=== PATIENT | female | born 1960 | race African-American/Black ===

== ENCOUNTER 2017-03-02 00:24 | Emergency (ER) | payer MEDICARE ==
[2017-03-02 01:08] LABS: Bilirubin Negative (Negative); Blood, Urine Negative (Negative); Clarity CLOUDY (Clear); Glucose, Urine (Dipstick) Negative (Negative); Leukocyte Small (Negative); Nitrite Positive (Negative); Protein, Urine (Dipstick) Trace mg/dL (Neg-Trace); Specific Gravity, Urine 1.013 (1.002-1.036); Urobilinogen 0.2 mg/dL (0.2-1.0)
[2017-03-02 01:11] LABS: Bacteria/HPF 4+ HPF (None Seen); Hyaline Casts/LPF 7-10 HYALINE CAST LPF (0-3 Hyaline); Pathc Cast-AUWi Flag 0.94 (0-2.49); Squamous Epithelial 0-3 HPF (0-3); WBC/HPF 21-50 HPF (0-3)
[2017-03-02] MEDS ORDERED: Ondansetron ODT 4 MG TAB ONE (01:50)
[2017-03-02 01:57] LABS: #Lymphocytes 0.9 thou/uL (1.20-3.40); #Monocytes 0.4 thou/uL (0.11-0.59); #Neutrophils 6.8 thou/uL (1.40-6.50); %Basophils 0.4 % (0.0-1.0); %Lymphocytes 10.8 % (21.0-51.0); %Monocytes 4.5 % (0.0-10.0); %Neutrophils 84.3 % (42.0-75.0); Hemoglobin 11.4 g/dL (12.0-16.0); Mean Corpuscular HGB CONC 30.8 g/dL (32.0-36.0); Mean Corpuscular Hemoglobin 22.8 pg (27.0-31.0); Mean Corpuscular Volume 74.2 fl (81.0-99.0); Mean Platelet Volume 11.3 fL (7.4-10.4); Platelet Count 313 thou/uL (130-400); RBC Distribution Width 21.2 % (11.5-14.5); Red Blood Cell (RBC) Count 4.98 mill/uL (4.20-5.40); White Blood Cell (WBC) Count 8.1 thou/uL (4.8-10.8)
[2017-03-02 02:07] LABS: ALT (SGPT) 8 U/L (8-55); AST (SGOT) 11 U/L (5-34); Albumin 4.2 g/dL (3.5-5.0); Alkaline Phosphatase 131 U/L (40-150); Anion Gap 16 mmol/L (10-20); BUN (Urea Nitrogen) 9 mg/dL (9.8-20.1); Bilirubin, Total Less than 0.2 mg/dL (0.2-1.2); Calc. Creatinine Clearance 0 mL/min (70-130); Carbon Dioxide 25 mmol/L (22-29); Chloride 101 mmol/L (98-107); Estimated GFR-MDRD Greater than 90; Globulin 5.1 g/dL (2.4-3.5); Glucose 143 mg/dL (70-105); Protein, Total 9.3 g/dL (6.0-8.3); Sodium 139 mmol/L (136-145)
[2017-03-02 02:09] LABS: Potassium 2.7 mmol/L (3.5-5.1)
[2017-03-02] MEDS ORDERED: Potassium Chloride 20 MEQ TAB ONE (03:16)
[2017-03-02] MEDS ORDERED: Fentanyl 100 MCG/2 ML VIAL ONE (03:53)
--- NOTE | 2017-03-02 08:29 | RAD ---
CHEST ONE VIEW: History: Dyspnea. Follow up. Comparison: 05-15-16 FINDINGS: Cardiac silhouette is magnified by projection. Pulmonary vasculature is unremarkable. Mediastinum is midline. There is no confluent airspace consolidation or evidence of pneumothorax. IMPRESSION: No active cardiopulmonary abnormalities are demonstrated. POS: [facility]
== END 2017-03-02 05:03 | disposition home or self-care (01) ==
LOC: ERS 00:24
DX: N39.0 Urinary tract infection, site not specified (principal); I10 Essential (primary) hypertension; F41.9 Anxiety disorder, unspecified; F32.9 Major depressive disorder, single episode, unspecified
CPT/HCPCS: 36415; 71045; 80053; 81003; 81015; 85025; 87077; 87086; 87186; 96372; J3010; Q0162

== ENCOUNTER 2017-03-30 09:45 | Inpatient (IN) | payer MEDICARE ==
[2017-03-30 10:31] LABS: Hemoglobin 11.5 g/dL (12.0-16.0); Mean Corpuscular HGB CONC 30.4 g/dL (32.0-36.0); Mean Corpuscular Hemoglobin 22.8 pg (27.0-31.0); Mean Corpuscular Volume 75.2 fl (81.0-99.0); Mean Platelet Volume 7.4 fL (7.4-10.4); Platelet Count 208 thou/uL (130-400); RBC Distribution Width 22.7 % (11.5-14.5); Red Blood Cell (RBC) Count 5.02 mill/uL (4.20-5.40); White Blood Cell (WBC) Count 8.6 thou/uL (4.8-10.8)
[2017-03-30 10:37] LABS: Bilirubin Negative (Negative); Blood, Urine Trace (Negative); Clarity CLOUDY (Clear); Glucose, Urine (Dipstick) Negative (Negative); Leukocyte Small (Negative); Nitrite Negative (Negative); Protein, Urine (Dipstick) Negative (Neg-Trace); Specific Gravity, Urine 1.008 (1.002-1.036); Urobilinogen 0.2 mg/dL (0.2-1.0)
[2017-03-30 10:39] LABS: Bacteria/HPF 4+ HPF (None Seen); Hyaline Casts/LPF 0-3 HYALINE CAST LPF (0-3 Hyaline); Pathc Cast-AUWi Flag 0.27 (0-2.49)
[2017-03-30 10:45] LABS: ALT (SGPT) 7 U/L (8-55); AST (SGOT) 10 U/L (5-34); Albumin 4.4 g/dL (3.5-5.0); Alkaline Phosphatase 138 U/L (40-150); Anion Gap 16 mmol/L (10-20); BUN (Urea Nitrogen) 8 mg/dL (9.8-20.1); Bilirubin, Total 0.2 mg/dL (0.2-1.2); Calc. Creatinine Clearance 0 mL/min (70-130); Calcium 10.1 mg/dL (7.8-10.44); Carbon Dioxide 27 mmol/L (22-29); Chloride 101 mmol/L (98-107); Estimated GFR-MDRD Greater than 90; Globulin 4.6 g/dL (2.4-3.5); Glucose 178 mg/dL (70-105); Sodium 141 mmol/L (136-145)
[2017-03-30 10:49] LABS: Potassium 2.6 mmol/L (3.5-5.1)
[2017-03-30 10:53] LABS: Renal Epithelial None Seen HPF (0-3); Transitional Epithelial NONE SEEN HPF (0-3)
[2017-03-30 10:59] LABS: CKMB 0.8 ng/mL (0-6.6); Troponin I Less than 0.010 ng/mL (< 0.028)
[2017-03-30 11:04] LABS: MDiff Complete? YES
[2017-03-30 11:05] LABS: Band 4 % (5-11); Hypochromia SLIGHT = 6-15 cells (100X) (0-5/hpf); Lymphocytes 7 % (21-51); Monocytes 4 % (0-10); Neutrophil 85 % (42-75); Nucleated RBC 1 % (0); PLT Morphology Comment Appears Adequate; Polychromasia SLIGHT = 2-3 cells (100X) (0-2/hpf); Target Cells MARKED = >16 cells (100X) (0-1/hpf)
[2017-03-30] MEDS ORDERED: Promethazine HCl 25 MG/ML VIAL ONE (11:10)
--- NOTE | 2017-03-30 11:52 | RAD ---
PORTABLE CHEST ONE VIEW: Date: 03-30-17 Time: 11:18 a.m. History: Altered mental status. FINDINGS: Comparison made with exam of 03-02-17. The heart size is normal. The lungs are expanded without focal areas of consolidation, pneumothorax, or pleural effusions. IMPRESSION: No radiographic evidence of acute cardiopulmonary process. POS: [facility]
[2017-03-30] MEDS ORDERED: Lorazepam 2 MG/ML VIAL ONE (13:16)
[2017-03-30 13:57] LABS: Amphetamine Not Detected (NotDetected); Barbiturates Screen Not Detected (NotDetected); Benzodiazepine Screen Not Detected (NotDetected); Cocaine Metabolite Screen Not Detected (NotDetected); Medtox Control Line Valid? VALID (VALID); Medtox Reader # READER 4; Methadone Not Detected (NotDetected); Methamphetamine Not Detected (NotDetected); Opiate Screen Detected (NotDetected); Oxycodone Screen Detected (NotDetected); Phencyclidine (PCP) Not Detected (NotDetected); THC/Cannabinoid Screen Detected (NotDetected); Tricyclic Screen Not Detected (NotDetected)
[2017-03-30 14:12] LABS: Lactic Acid 2.7 mmol/L (0.5-2.2)
[2017-03-30] MEDS ORDERED: Dextrose 50% Abboject 50 ML SYRINGE SLOW IVP PRN (14:57)
[2017-03-30] MEDS ORDERED: Dextrose 5% in Water 1,000 ML IV PRN (14:57)
[2017-03-30] MEDS ORDERED: HumaLOG 300 UNITS/3 ML VIAL SC PRN (14:57)
[2017-03-30] MEDS ORDERED: Potassium Chloride 40 MEQ in Sodium Chloride 0.9% 500 ML IVPB SCH ×2 (15:30→16:15)
[2017-03-30 15:31] LABS: Hemoglobin A1c 5.1 % (4.0-6.0)
--- NOTE | 2017-03-30 15:34 | CT ---
CT BRAIN WITHOUT CONTRAST: History: Altered mental status. FINDINGS: There is exclusion of the brain and skull in the posterior aspect close to and including the vertex. The patient was combative and refused completing the exam. No evidence of acute infarct, hemorrhage, midline shift of abnormal extraaxial fluid collections are seen. The ventricular size is normal and the basilar cisterns patent. The visualized bones are intact . The visualized paranasal sinuses and mastoid air cells are well aerated. IMPRESSION: No definite evidence of acute intracranial process in the visualized portions of the brain. POS: [facility]
[2017-03-30 15:44] LABS: Cardiac Risk 2.8 (Less than 4.5)
[2017-03-30] MEDS: Sodium Chloride 0.9% 1,000 ML IV SCH (16:04)
[2017-03-30] MEDS ORDERED: Labetalol HCl 100 MG/20 ML VIAL SLOW IVP PRN (17:29)
[2017-03-30] MEDS ORDERED: Acetaminophen 650 MG in Premix Bag 1 BAG IVPB PRN (17:29)
[2017-03-30] MEDS ORDERED: FLU VACC QS2017-18 36 mo. & older 0.5 ML SYRINGE IM ONE (18:00)
[2017-03-30 19:20] LABS: Lactic Acid 0.8 mmol/L (0.5-2.2)
[2017-03-30] MEDS ORDERED: Pantoprazole 40 MG VIAL IVP SCH (21:00)
--- NOTE | 2017-03-30 21:05 | HP-2 ---
DATE OF ADMISSION: 03/30/2017 DATE OF SERVICE: 03/30/2017 CODE STATUS: FULL. PRIMARY CARE PHYSICIAN: Dr. Otero. ATTENDING: Dr. Leslie. RESIDENT: Dr. Joan Flores. HISTORIAN: EMS and nurse. CHIEF COMPLAINT: Altered mental status. HISTORY OF PRESENT ILLNESS: This is a 56-year-old female with a past medical history of vulvar cancer, who presents in currently with urostomy bag presents via EMS who responded to her Life Alert call. She presented with altered mental status, she was found down by EMS in her house covered in feces not responsive/obtunded per EMS. When we evaluated her in the ER, she was not alert and oriented or responsive to verbal stimuli. She did respond to sternal rub. She was not conversive, but she was speaking incoherently, chanting random words like pillow and pain. She also appeared agitated. She cannot offer any history. In the ER, she was given Ativan 1 mg IV push. She was given 1 liter of normal saline as well as Levaquin 750 mg IV and Phenergan 25 mg IV, 2 liters of sodium chloride. PAST MEDICAL HISTORY: 1. History of vulvar cancer diagnosed in 2003, status post chemo and radiation. 2. Hypertension. 3. Type 2 diabetes. 4. Recurrent urinary tract infections. 5. Chronic anemia. 6. First-degree AV block. 7. Depression. 8. Hiatal hernia. PAST SURGICAL HISTORY: 1. Right hip disarticulation. 2. Bilateral tubal ligation, bilateral hip replacement resulting in bilateral infections and subsequently removal at the right hip as well as subsequently causing removal of the left artificial hip joint. ALLERGIES: 1. IODINE. 2. LIDOCAINE. MEDICATIONS: 1. OxyContin 30 mg b.i.d. 2. Morphine IR 15 mg q.8 hours (both of these were prescribed in 03/[address] Charles). The next set of medications were taken from [facility] from 05/2016. 1. Amlodipine 5 mg p.o. 2. Baclofen 10 mg q.6 hours p.r.n. 3. Cymbalta 120 mg daily. 4. BuSpar 15 mg q.4 hour. 5. Zyprexa 10 mg at bedtime. 6. Diazepam 2 mg p.o. b.i.d. p.r.n. 7. Methadone 10 mg q.i.d. FAMILY HISTORY: Cancer in her father, also family history of CAD, diabetes, hypertension. SOCIAL HISTORY: Former tobacco history, 5-10 cigarettes per day, unknown duration of time. Denies alcohol use, former history of marijuana use. REVIEW OF SYSTEMS: Review of systems was obtained from EMS. General: Denies fevers and chills. Eyes: Denies vision changes. ENT: Denies nasal congestion or rhinorrhea. Respiratory: Denies cough, congestion, shortness of breath. Cardiovascular: Denies chest pain, palpitations, edema. GI: Denies nausea, vomiting, diarrhea, constipation. Genitourinary: Denies incontinence, dysuria. Rashes and lesions. Pain, tenderness. Neurologic: Weakness, numbness. Psychiatric: Anxiety and depression. PHYSICAL EXAMINATION: VITAL SIGNS: Blood pressure 171/85, pulse 85, respiratory rate 19, T-max 98.1, pulse ox 100% on room air. GENERAL: Alert and oriented, not appropriately interactive. CARDIOVASCULAR: Regular rate and rhythm. No murmurs, rubs, or gallops. Pedal pulses 2+ on the left leg. RESPIRATORY: Normal effort, no retractions. Clear to auscultation bilaterally. ABDOMEN: Soft. Urostomy in the right lower quadrant, nontender to palpation. EXTREMITIES: Right lower extremity disarticulation. SKIN: Grossly obvious perineal mass. NEUROLOGICAL: GCS of 10. LABORATORY DATA: White blood cell count 8.6, hemoglobin and hematocrit 11.5 and 37.8, platelets 208. CMP: Sodium 141, potassium 2.6, chloride 101, bicarb 27, BUN 8, creatinine 0.59 , glucose 178. Calcium 10.1, protein 9.0, albumin 4.4. Total bilirubin 0.2, AST 10, ALT 7, alkaline phosphatase 38, lactic acid 2.1, which increased to 2.7. UA positive for blood and leukocyte esterase and 4+ bacteria, 11-20 white blood cells, 4-6 squamous epithelial cells, negative for glucose, ketones, and nitrites, total protein. UDS was positive for marijuana, opiates, and oxycodone. Chest x-ray no cardiopulmonary process. EKG not completed. ASSESSMENT AND PLAN: This is a 56-year-old female with a past medical history of vulvar cancer, who presents via EMS for altered mental status, admitted for encephalopathy. 1. Encephalopathy suspected to be due to toxic ingestion of her pain medication. She has a prior admission to the hospital approximately a year ago with a similar presentation. She currently is a patient of Dr. Otero, but receives her pain medication most recently picked up on 03/19/2017 of OxyContin and morphine IR. She also has a small urinary tract infection, does not appear to be septic at this time. We ordered a head CT to rule out a brain bleed, which was difficult to assess, as the patient was combative and refused completing the exam. No evidence of acute infarct or hemorrhage. We will also order an ABG to evaluate her acid-base status, although she has a normal respiratory rate, no increased work of breathing, and satting well on room air with a normal bicarbonate. 2. Hypokalemia. She came with potassium of 2.6. We will replace with 40 KCl IVP added to her fluids and normal saline at 120 mL an hour. 3. She had a lactic acidosis. We started on normal saline 120 mL an hour and we will recheck done in 4 hours. 4. Diabetes. We will check hemoglobin A1c, started on sliding scale insulin, Accu-Cheks a.c. and at bedtime. 5. Hypertension. We will provide p.r.n. labetalol now and will consider restarting home medications from a list obtained from almost a year ago and she was admitted here of amlodipine 5 mg p.o. 6. Depression. We will attempt to assess for SI, HI, and AVH once the patient is conversive and less obtunded. 7. Social concerns. Patient was found obtunded at home on the floor. She is nonambulatory and was covered in feces. An Adult Protective Services complaint was filed in the ER and case management will be consulted to assist in following up regarding caring for this patient. 8. History of vulvar cancer. She was diagnosed in 2003 appears to have had chemo and radiation. She does have an appears to overt perineal mass that is fibrosis from her chemo/radiation treatment. When she is less obtunded, we will attempt to start her on adequate pain control. DISPOSITION AND LENGTH OF HOSPITAL STAY: 2-3 days. Symptomatic medication will be provided. History and physical exam as well as management discussed with Dr. Leslie. [facility]
--- NOTE | 2017-03-31 02:00 | HP ---
DATE OF ADMISSION: 03/30/2017 CHIEF COMPLAINT: Altered mental status. HISTORY OF PRESENT ILLNESS: This is a 56-year-old female with past history of vulvar cancer, hypertension, right hip disarticulation, and chronic pain on multiple opiates, who presents to the ED via EMS after she was found down in urine and feces and subsequently transported. She was subsequently admitted to our service. Currently, she is intermittently GCS of 15 and then she will be quite active and respond to questions and then she will stop respond to people and seemingly go back to sleep. During her awake period, she moves all extremities and is appropriately interactive. She says she hurts all over, but when pressed cannot complete review of systems. Past medical history and past surgical history are limited as well as medications are limited. FAMILY HISTORY AND SOCIAL HISTORY: Because of her current mental status what is reconstructed is primarily from chart checking. PHYSICAL EXAMINATION: VITAL SIGNS: BP 171/87, temperature 97.5, pulse 94, respirations 18, 100% on room air. GENERAL: No acute distress. HEENT: Normocephalic, atraumatic. No signs of trauma. pupils equal, round, reactive to light. Eyes, anicteric without injection. Pinna normal. Nares patent. Moist mucous membranes. Poor dentition. CARDIOVASCULAR: Regular rate and rhythm without murmurs, gallops or rubs. LUNGS: Clear to auscultation bilaterally without wheeze, rales or rhonchi. GASTROINTESTINAL: Bowel sounds positive, nontender to palpation. No palpable organomegaly. She has an urostomy in the right lower quadrant. It is well appearing. GENITOURINARY: She has a pretty impressive condyloma that appears to have portions that are denuded and open. A detailed exam was not performed because the patient could not cooperate or consent. MUSCULOSKELETAL: She has right hip disarticulation. She has a left hip removal , but still has her femur and lower extremity bones in place and able to move it. Peripheral pulses in the leg, 2+. NEUROLOGIC: She moves all extremities well without difficulties. Sensation is intact to light touch throughout. Cranial nerves II-XII are difficult to assess , but appear to be symmetric and intact. PSYCHIATRIC: She is alert and oriented x3 when she wakes up and then when she decides to go to sleep, she refuses to respond. LABORATORY DATA: Include white count 8.6, hemoglobin 11.5, MCV is 75.2, platelets 208. Sodium 141, potassium 2.6, chloride 101, bicarb 27, gap 16, BUN 8, creatinine 0.59, glucose 178, calcium 10.1. ALT 7, AST 10, total bilirubin 0.2. Urine, significant for trace blood, trace or small leukocyte esterase, 10- 20 wbc's, and 4-6 squamous epithelial cells, 4+ bacteria. UDS has positive opiates, hydrocodone, cannabinoids. Brain CT was negative for acute intracranial process. ASSESSMENT AND PLAN: 1. This is a 56-year-old female who came in with acute encephalopathy. Differential is wide and includes pulmonary embolism, acute coronary syndrome, aortic dissection, metastatic spread of her cancer, new onset seizure, hypoglycemia and narcotic intoxication. We will hold all of her pain medications for the next several hours until she becomes more appropriate in her responses. Will consider keppra load depending on clinical course. 2. Chronic pain. We will hold her narcotics at this point. Hold Ativan. 3. Vulvar cancer. We will discuss and request records from her oncologist. 4. Positive leukocyte esterase in the urine. She currently does not have any abdominal pain, nontender to palpation, no symptoms, so we will hold off on treatment. This could be concerning for seizure. We will consider consultation with Neurology in the morning. 5. Deep venous thrombosis prophylaxis with Lovenox. 6. Gastrointestinal prophylaxis with diet when she wakes up. [facility]
[2017-03-31] MEDS: Sodium Chloride 0.9% 1,000 ML IV SCH ×4 (04:51→22:58)
[2017-03-31 05:32] LABS: #Basophils 0.1 thou/uL (0.0-0.2); #Lymphocytes 1.6 thou/uL (1.20-3.40); #Monocytes 0.7 thou/uL (0.11-0.59); #Neutrophils 4.7 thou/uL (1.40-6.50); %Eosinophils 0.1 % (0.0-10.0); %Lymphocytes 22.6 % (21.0-51.0); %Monocytes 10.2 % (0.0-10.0); %Neutrophils 66.1 % (42.0-75.0); Hemoglobin 11.4 g/dL (12.0-16.0); Mean Corpuscular HGB CONC 31.1 g/dL (32.0-36.0); Mean Corpuscular Hemoglobin 23.2 pg (27.0-31.0); Mean Corpuscular Volume 74.5 fl (81.0-99.0); Mean Platelet Volume 7.4 fL (7.4-10.4); Platelet Count 222 thou/uL (130-400); RBC Distribution Width 22.4 % (11.5-14.5); Red Blood Cell (RBC) Count 4.91 mill/uL (4.20-5.40); White Blood Cell (WBC) Count 7.1 thou/uL (4.8-10.8)
[2017-03-31 05:50] LABS: Anion Gap 13 mmol/L (10-20); BUN (Urea Nitrogen) 6 mg/dL (9.8-20.1); Calc. Creatinine Clearance 131 mL/min (70-130); Calcium 9.8 mg/dL (7.8-10.44); Carbon Dioxide 25 mmol/L (22-29); Chloride 101 mmol/L (98-107); Estimated GFR-MDRD Greater than 90; Glucose 117 mg/dL (70-105); Sodium 137 mmol/L (136-145)
[2017-03-31 06:13] LABS: Potassium 2.4 mmol/L (3.5-5.1)
[2017-03-31] MEDS ORDERED: Potassium Chloride 40 MEQ in Sodium Chloride 0.9% 500 ML IVPB SCH ×2 (07:00→14:00)
[2017-03-31] MEDS ORDERED: Pantoprazole 40 MG VIAL IVP SCH (09:00)
[2017-03-31 09:05] VITALS: BMI 25.7
[2017-03-31] MEDS: Enoxaparin Sodium 40 MG/0.4 ML SYRINGE SC SCH (09:16)
[2017-03-31] MEDS ORDERED: Morphine 5 MG/ML SYRINGE SLOW IVP PRN ×2 (11:17→11:18)
[2017-03-31 11:29] LABS: Magnesium 1.6 mg/dL (1.6-2.6); Phosphorus 2.2 mg/dL (2.3-4.7)
[2017-03-31] MEDS: Ondansetron ODT 4 MG TAB SL PRN ×2 (11:29→16:31)
--- NOTE | 2017-03-31 12:10 | PDOC.FM ---
- Objective Vital Signs & Weight: Vital Signs (12 hours) Temp Pulse Resp BP Pulse Ox 03/31/17 08:35 97.7 F 95 18 147/89 H 100 03/31/17 08:00 97.8 F 84 18 03/31/17 04:00 97.8 F 84 18 161/86 H 96 Weight Admit Weight 70.3 kg Weight 70.3 kg I&O: 03/30/17 03/31/17 04/01/17 06:59 06:59 06:59 Intake Total 1823 Output Total 3400 Balance -1577 Result Diagrams: 03/31/17 04:51 03/31/17 04:51 <Joan Flores - Last Filed: 03/31/17 12:21> - Objective Vital Signs & Weight: Vital Signs (12 hours) Temp Pulse Resp BP Pulse Ox 03/31/17 08:35 97.7 F 95 18 147/89 H 100 03/31/17 08:00 97.8 F 84 18 03/31/17 04:00 97.8 F 84 18 161/86 H 96 Weight Admit Weight 70.3 kg Weight 70.3 kg I&O: 03/30/17 03/31/17 04/01/17 06:59 06:59 06:59 Intake Total 1823 Output Total 3400 Balance -1577 Result Diagrams: 03/31/17 04:51 03/31/17 12:18 <hSane Tellez - Last Filed: 03/31/17 13:05> Dx/Plan (1) Acute encephalopathy Code(s): G93.40 - ENCEPHALOPATHY, UNSPECIFIED Status: Acute (2) Hypokalemia Code(s): E87.6 - HYPOKALEMIA Status: Acute (3) Marijuana abuse Code(s): F12.10 - CANNABIS ABUSE, UNCOMPLICATED Status: Acute (4) Anxiety and depression Code(s): F41.9 - ANXIETY DISORDER, UNSPECIFIED; F32.9 - MAJOR DEPRESSIVE DISORDER, SINGLE EPISODE, UNSPECIFIED Status: Chronic (5) Opioid dependence Code(s): F11.20 - OPIOID DEPENDENCE, UNCOMPLICATED Status: Chronic (6) Benign essential hypertension Code(s): I10 - ESSENTIAL (PRIMARY) HYPERTENSION Status: Chronic - Plan Plan: 56 yo f with pmhx of vulvar cancer s/p chemo and radiation with 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 1.)Suspected toxic encephalopathy-pt was a&ox4 this AM, improved from yesterday when she had a GCS of 10. She states that she ate a sandwich yesterday and acutely got nauseous and vomited and multiple bouts of diarrhea. She felt weak and called EMS via her life alert. She was very sedated yesterday. Suspect overuse of oxycontin, morphine. She also was positive on her UDS for marijuana. -Plan to provide morphine 4mg q4 hr for pain, with 2mg q2hr for breakthrough pain, since she is alert and oriented this am. -Etiology does not appear to be infectious, traumatic, tumor, stroke, endocrine , or stroke related. Cannot rule out a seizure at this point. -Pt currently gets pain meds from Dr. Charles. -She also per Cm gets HH 3x/week. Would recommend daily for at least 3 months if pt does not desire to go to a sniff. She has a brother that helps with transport to and from [facility]. 2.)Viral gastroenteritis-improved. n/v/d resolved. zofran prn. 3.)HTN-restarted amlodipine. Will monitor. 4.)Hypokalemia-will restart 20 Kdur PO daily, and replace as needed. 5.)Anxiety and Depression-pt has been off medication for almost a year. Does not appear to be having active SI/HI/AVH. <Joan Flores - Last Filed: 03/31/17 12:21> Attending Addendum - Attending Addendum I personally evaluated the patient and discussed the management with Dr. Christine Romano. I agree with the History, Examination, Assessment and Plan documented above with any addition or exceptions noted below. Patient denies complaints this morning. She is not very talkative and does not seem interested in having a discussion with us. However, she does answer questions appropriately. I am told that she was improved with her mentation earlier this morning. She may be in pain since she has not had any of her home meds. Will institute some pain control and reassess. She has no evidence for her encephalopathy other than a toxic cause, of which she has had before due to medication effect. Her potassium is critically low and will need close monitoring and repletion through the day. Anticipate 1-2 more days hospitalization. <Shane Tellez - Last Filed: 03/31/17 13:05>
[2017-03-31 12:58] LABS: Anion Gap 14 mmol/L (10-20); BUN (Urea Nitrogen) 8 mg/dL (9.8-20.1); Calc. Creatinine Clearance 136 mL/min (70-130); Calcium 9.6 mg/dL (7.8-10.44); Carbon Dioxide 25 mmol/L (22-29); Chloride 104 mmol/L (98-107); Estimated GFR-MDRD Greater than 90; Glucose 111 mg/dL (70-105); Sodium 140 mmol/L (136-145)
[2017-03-31 13:00] LABS: Potassium 2.5 mmol/L (3.5-5.1)
[2017-03-31 13:03] LABS: CKMB 0.6 ng/mL (0-6.6); Troponin I Less than 0.010 ng/mL (< 0.028)
[2017-03-31] MEDS: Morphine 5 MG/ML SYRINGE SLOW IVP PRN ×3 (15:17→22:53)
[2017-03-31 16:25] LABS: CKMB 0.5 ng/mL (0-6.6); Troponin I Less than 0.010 ng/mL (< 0.028)
[2017-03-31] MEDS ORDERED: Acetaminophen 325 MG TAB PO PRN (18:21)
[2017-03-31 18:50] LABS: Potassium 2.8 mmol/L (3.5-5.1)
[2017-03-31 19:38] LABS: CKMB 0.5 ng/mL (0-6.6); Troponin I Less than 0.010 ng/mL (< 0.028)
[2017-03-31] MEDS ORDERED: OLANZapine 5 MG TAB PO SCH (21:00)
[2017-03-31] MEDS ORDERED: hydrOXYzine 25 MG TAB PO SCH (22:45)
[2017-03-31] MEDS: Simethicone Chewable 80 MG TAB PO SCH (22:53)
[2017-03-31 23:27] LABS: Anion Gap 10 mmol/L (10-20); BUN (Urea Nitrogen) 13 mg/dL (9.8-20.1); Calc. Creatinine Clearance 126 mL/min (70-130); Carbon Dioxide 24 mmol/L (22-29); Chloride 109 mmol/L (98-107); Estimated GFR-MDRD Greater than 90; Glucose 111 mg/dL (70-105); Potassium 3.2 mmol/L (3.5-5.1); Sodium 140 mmol/L (136-145)
[2017-04-01] MEDS ORDERED: Calcium Carbonate 500 MG ChewTAB PO PRN (02:13)
[2017-04-01 05:23] LABS: Anion Gap 13 mmol/L (10-20); BUN (Urea Nitrogen) 13 mg/dL (9.8-20.1); Calc. Creatinine Clearance 139 mL/min (70-130); Calcium 9.2 mg/dL (7.8-10.44); Carbon Dioxide 21 mmol/L (22-29); Chloride 108 mmol/L (98-107); Estimated GFR-MDRD Greater than 90; Glucose 81 mg/dL (70-105); Potassium 3.2 mmol/L (3.5-5.1); Sodium 139 mmol/L (136-145)
[2017-04-01 06:02] LABS: Anisocytosis SLIGHT = 6-15 cells (100X) (0-5/hpf); Eosinophils 1 % (0-10); Hemoglobin 10.1 g/dL (12.0-16.0); Lymphocytes 54 % (21-51); MDiff Complete? YES; Mean Corpuscular HGB CONC 31.1 g/dL (32.0-36.0); Mean Corpuscular Hemoglobin 23.5 pg (27.0-31.0); Mean Corpuscular Volume 75.6 fl (81.0-99.0); Mean Platelet Volume 7.7 fL (7.4-10.4); Monocytes 7 % (0-10); Neutrophil 37 % (42-75); Platelet Count 177 thou/uL (130-400); RBC Distribution Width 21.8 % (11.5-14.5); Red Blood Cell (RBC) Count 4.28 mill/uL (4.20-5.40); Target Cells MODERATE= 6-15 cells (100X) (0-1/hpf); White Blood Cell (WBC) Count 5.2 thou/uL (4.8-10.8)
--- NOTE | 2017-04-01 06:09 | PDOC.FM ---
- Subjective Subjective: No acute events overnight. No complaints this am. A&Ox4. - Objective Vital Signs & Weight: Vital Signs (12 hours) Temp Pulse Resp BP Pulse Ox 03/31/17 20:00 98.3 F 83 20 108/72 97 Weight Admit Weight 70.3 kg Weight 70.3 kg I&O: 03/30/17 03/31/17 04/01/17 06:59 06:59 06:59 Intake Total 1823 Output Total 3400 800 Balance -1577 -800 Result Diagrams: 04/01/17 04:18 04/01/17 04:18 <Joan Flores - Last Filed: 04/01/17 09:13> - Objective Vital Signs & Weight: Vital Signs (12 hours) Temp Pulse Resp BP BP Pulse Ox 04/01/17 09:58 85 126/78 04/01/17 08:00 98.1 F 85 14 126/78 100 Weight Admit Weight 70.3 kg Weight 70.3 kg I&O: 03/31/17 04/01/17 04/02/17 06:59 06:59 06:59 Intake Total 1823 1920 Output Total 3400 800 1000 Balance -1577 1120 -1000 Result Diagrams: 04/01/17 04:18 04/01/17 04:18 <Shane Tellez - Last Filed: 04/01/17 11:49> Phys Exam - Physical Examination Constitutional: NAD HEENT: PERRLA Respiratory: no wheezing, clear to auscultation bilateral Cardiovascular: RRR, no significant murmur Gastrointestinal: soft, non-tender Musculoskeletal: no edema Psychiatric: A&O x 3 Skin: no rash <Joan Flores - Last Filed: 04/01/17 09:13> Dx/Plan (1) Acute encephalopathy Code(s): G93.40 - ENCEPHALOPATHY, UNSPECIFIED Status: Acute (2) Hypokalemia Code(s): E87.6 - HYPOKALEMIA Status: Acute (3) Marijuana abuse Code(s): F12.10 - CANNABIS ABUSE, UNCOMPLICATED Status: Acute (4) Anxiety and depression Code(s): F41.9 - ANXIETY DISORDER, UNSPECIFIED; F32.9 - MAJOR DEPRESSIVE DISORDER, SINGLE EPISODE, UNSPECIFIED Status: Chronic (5) Opioid dependence Code(s): F11.20 - OPIOID DEPENDENCE, UNCOMPLICATED Status: Chronic (6) Benign essential hypertension Code(s): I10 - ESSENTIAL (PRIMARY) HYPERTENSION Status: Chronic - Plan Plan: 56 yo f with pmhx of vulvar cancer s/p chemo and radiation with 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 1.)Suspected toxic encephalopathy-pt was a&ox4 this AM. -Etiology does not appear to be infectious, traumatic, tumor, stroke, endocrine , or stroke related. Cannot rule out a seizure at this point. -Pt currently gets pain meds from Dr. Charles. -She also per Cm gets HH 3x/week. Would recommend daily for at least 3 months if pt does not desire to go to a sniff. She has a brother that helps with transport to and from [facility]. -We will transition Ms. Olivera to PO pain medication today. She's using about 18 OME's. Her home regimen for MS odell is 15mg q6h, which would be appropriate based on OME's. I will start with q8h however and provide morphine IV for breakthrough and reassess in 24 hours. 2.)Viral gastroenteritis-improved. n/v/d resolved. zofran prn. 3.)HTN-restarted amlodipine. Will monitor. 4.)Hypokalemia-Increased to 40KCL PO daily d/t persistently low potassium. 5.)Anxiety and Depression vs other mood d/o-pt has been off medication for almost a year. Does not appear to be having active SI/HI/AVH. Will assess mood today to see if she needs to be started back on prior medication of olanzapine. Dispo: likely discharge today <Joan Flores - Last Filed: 04/01/17 09:13> Attending Addendum - Attending Addendum I personally evaluated the patient and discussed the management with Dr. Christine Romano. I agree with the History, Examination, Assessment and Plan documented above with any addition or exceptions noted below. Patient back at baseline from mental status perspective. Her pain is not adequately controlled and will escalate her pain meds. Will discuss her care with her outpatient Oncologist today. Her potassium is better, will continue supplementation. It is likely that she has hypokalemia due to poor intake. She admits this morning to only eating one small meal a day and nothing is appetizing. Will discuss with her oncologist starting Megace versus Remeron for coexisting depression. General Doc consult. <Shane Tellez - Last Filed: 04/01/17 11:49>
[2017-04-01] MEDS: Sodium Chloride 0.9% 1,000 ML IV SCH ×3 (06:30→21:48)
[2017-04-01] MEDS ORDERED: Morphine ER 15 MG TAB PO SCH ×2 (06:30→14:00)
[2017-04-01] MEDS ORDERED: Potassium Chloride 20 MEQ TAB PO SCH ×2 (08:00→09:13)
[2017-04-01] MEDS ORDERED: Potassium Chloride 20 MEQ TAB PO ONE (09:11)
[2017-04-01] MEDS: Amlodipine 10 MG TAB PO SCH (09:58)
[2017-04-01] MEDS: Enoxaparin Sodium 40 MG/0.4 ML SYRINGE SC SCH (09:59)
[2017-04-01] MEDS: Magnesium Oxide 400 MG TAB PO SCH (09:59)
[2017-04-01] MEDS: Simethicone Chewable 80 MG TAB PO SCH ×4 (09:59→22:45)
[2017-04-01] MEDS ORDERED: Cefdinir 300 MG CAP PO SCH (13:15)
[2017-04-01] MEDS ORDERED: Nitrofurantoin Monohyd/M-Cryst 100 MG CAP PO SCH (13:15)
[2017-04-01] MEDS ORDERED: Gabapentin 300 MG CAP PO SCH (15:30)
[2017-04-01] MEDS ORDERED: busPIRone HCl 10 MG TAB PO SCH (15:45)
[2017-04-01] MEDS ORDERED: OLANZapine 5 MG TAB PO SCH (18:00)
[2017-04-01] MEDS: Cefdinir 300 MG CAP PO SCH (19:39)
[2017-04-01] MEDS: Morphine ER 15 MG TAB PO SCH (19:39)
[2017-04-01] MEDS: Nitrofurantoin Monohyd/M-Cryst 100 MG CAP PO SCH (19:39)
[2017-04-01] MEDS: Gabapentin 300 MG CAP PO SCH (19:39)
[2017-04-01] MEDS: Lorazepam 1 MG TAB PO PRN (21:46)
[2017-04-02 05:53] LABS: Anisocytosis SLIGHT = 6-15 cells (100X) (0-5/hpf); Eosinophils 3 % (0-10); Hemoglobin 9.5 g/dL (12.0-16.0); Hypochromia SLIGHT = 6-15 cells (100X) (0-5/hpf); Lymphocytes 69 % (21-51); MDiff Complete? YES; Mean Corpuscular Hemoglobin 22.9 pg (27.0-31.0); Mean Corpuscular Volume 76.2 fl (81.0-99.0); Mean Platelet Volume 7.2 fL (7.4-10.4); Microcytosis SLIGHT = 6-15 cells (100X) (0-5/hpf); Monocytes 7 % (0-10); Neutrophil 21 % (42-75); PLT Morphology Comment Appears Adequate; Platelet Count 172 thou/uL (130-400); RBC Distribution Width 21.4 % (11.5-14.5); Red Blood Cell (RBC) Count 4.16 mill/uL (4.20-5.40); White Blood Cell (WBC) Count 4.6 thou/uL (4.8-10.8)
[2017-04-02 06:10] LABS: Anion Gap 10 mmol/L (10-20); BUN (Urea Nitrogen) 9 mg/dL (9.8-20.1); Calc. Creatinine Clearance 148 mL/min (70-130); Calcium 8.4 mg/dL (7.8-10.44); Carbon Dioxide 24 mmol/L (22-29); Chloride 110 mmol/L (98-107); Estimated GFR-MDRD Greater than 90; Glucose 77 mg/dL (70-105); Sodium 141 mmol/L (136-145)
--- NOTE | 2017-04-02 06:14 | PDOC.FM ---
- Subjective Subjective: No acute events overnight. VSS. Not complaining of pain this am. A&Ox4. - Objective MAR Reviewed: Yes Vital Signs & Weight: Vital Signs (12 hours) Temp Pulse Resp BP Pulse Ox 04/01/17 20:00 98 F 88 18 129/84 99 Weight Admit Weight 70.3 kg Weight 70.3 kg I&O: 03/31/17 04/01/17 04/02/17 06:59 06:59 06:59 Intake Total 1823 1920 1740 Output Total 3400 800 2500 Balance -1577 1120 -760 Result Diagrams: 04/02/17 04:38 04/02/17 04:38 <Joan Flores - Last Filed: 04/02/17 11:19> - Objective Vital Signs & Weight: Vital Signs (12 hours) Temp Pulse Resp BP Pulse Ox 04/02/17 20:00 98.9 F 92 16 163/99 H 100 04/02/17 17:06 98.5 F 93 16 162/92 H 99 04/02/17 11:19 98.3 F 82 20 143/90 H 98 Weight Admit Weight 70.3 kg Weight 70.3 kg I&O: 04/01/17 04/02/17 04/03/17 06:59 06:59 06:59 Intake Total 1920 1740 Output Total 800 2500 2450 Balance 1120 -760 -2450 Result Diagrams: 04/02/17 04:38 04/02/17 20:40 <Alysha Freeman - Last Filed: 04/02/17 22:51> Phys Exam - Physical Examination Constitutional: NAD HEENT: PERRLA, moist MMs Neck: no JVD Respiratory: no wheezing, no rales, clear to auscultation bilateral Cardiovascular: RRR, no significant murmur Gastrointestinal: soft, non-tender, no distention, positive bowel sounds Musculoskeletal: no edema Neurological: non-focal Psychiatric: A&O x 3 Deviation from normal: depressed mood with congruent affect, tearful Skin: no rash <Joan Flores - Last Filed: 04/02/17 11:19> Dx/Plan (1) Acute encephalopathy Code(s): G93.40 - ENCEPHALOPATHY, UNSPECIFIED Status: Acute (2) Hypokalemia Code(s): E87.6 - HYPOKALEMIA Status: Acute (3) Marijuana abuse Code(s): F12.10 - CANNABIS ABUSE, UNCOMPLICATED Status: Acute (4) Anxiety and depression Code(s): F41.9 - ANXIETY DISORDER, UNSPECIFIED; F32.9 - MAJOR DEPRESSIVE DISORDER, SINGLE EPISODE, UNSPECIFIED Status: Chronic (5) Opioid dependence Code(s): F11.20 - OPIOID DEPENDENCE, UNCOMPLICATED Status: Chronic (6) Benign essential hypertension Code(s): I10 - ESSENTIAL (PRIMARY) HYPERTENSION Status: Chronic - Plan Plan: 56 yo f with pmhx of vulvar cancer s/p chemo and radiation with 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 1.)Suspected toxic encephalopathy-pt was a&ox4 this AM. -Etiology does not appear to be infectious, traumatic, tumor, stroke, endocrine , or stroke related. Cannot rule out a seizure at this point. -Pt currently gets pain meds from Dr. Charles. -She also per Cm gets HH 3x/week. Would recommend daily for at least 3 months if pt does not desire to go to a sniff. She has a brother that helps with transport to and from [facility] -We will continue MS Contin today with morphine IV for breakthrough pain. Her total OME's=36, we can change her MS Contin to q8h and continue 2mg IV morphine q2h for breakthrough pain. She is requesting her muscle relaxer for back and leg pain. 2.)Viral gastroenteritis-improved. n/v/d resolved. zofran prn. 3.)HTN-restarted amlodipine. Will monitor. 4.)Hypokalemia-Increased to 40KCL PO daily d/t persistently low potassium. Dietitician consulted who recommended a CC diet and glucerna shakes BID. 5.)Anxiety and Depression vs other mood d/o-pt has been off medication for almost a year. Does not appear to be having active SI/HI/AVH. Will assess mood today to see if she needs to be started back on prior medication of olanzapine. Pt was depressed and tearful yesterday. We will restart he zyprexa and lorazepam prn which she was on in the past. Unclear how long she has been off those medications. Dispo: likely discharge today; pt would still benefit from going to a sniff. We will discuss this with her today again. However, she hasn't been interested in going up to this point. <Joan Flores - Last Filed: 04/02/17 11:19> Attending Addendum - Attending Addendum I personally evaluated the patient and discussed the management with Dr. Romano. I agree with the History, Examination, Assessment and Plan documented above with any addition or exceptions noted below- Patient now complaining of increased pain. Otherwise tolerating diet . Afebrile VSS. A/P: Toxic encephalopathy- resolved. uncertain etiology. 2) Chronic pain secondary to vulvar cancer and treatment- restarted on long acting opioid. Continue to titrate. 3) DM - stable; continue current meds. <Alysha Freeman - Last Filed: 04/02/17 22:51>
[2017-04-02 06:15] LABS: Potassium 2.9 mmol/L (3.5-5.1)
[2017-04-02] MEDS ORDERED: Potassium Chloride 20 MEQ TAB PO SCH ×3 (06:30→16:45)
[2017-04-02 06:58] LABS: Magnesium 1.5 mg/dL (1.6-2.6); Phosphorus 3.3 mg/dL (2.3-4.7)
[2017-04-02] MEDS ORDERED: OLANZapine 5 MG TAB PO SCH (09:00)
[2017-04-02] MEDS: Enoxaparin Sodium 40 MG/0.4 ML SYRINGE SC SCH (09:05)
[2017-04-02] MEDS: Sodium Chloride 0.9% 1,000 ML IV SCH ×2 (09:05→17:14)
[2017-04-02] MEDS: Magnesium Oxide 400 MG TAB PO SCH (09:06)
[2017-04-02] MEDS: OLANZapine 5 MG TAB PO SCH (09:06)
[2017-04-02] MEDS: Folic Acid 1 MG TAB PO SCH (09:06)
[2017-04-02] MEDS: Gabapentin 300 MG CAP PO SCH ×4 (09:06→23:23)
[2017-04-02] MEDS: Nitrofurantoin Monohyd/M-Cryst 100 MG CAP PO SCH ×2 (09:06→22:37)
[2017-04-02] MEDS: Morphine ER 15 MG TAB PO SCH ×3 (09:07→23:23)
[2017-04-02] MEDS: Cefdinir 300 MG CAP PO SCH ×3 (09:07→23:22)
[2017-04-02] MEDS: Simethicone Chewable 80 MG TAB PO SCH ×4 (09:08→22:37)
[2017-04-02] MEDS: Potassium Chloride 20 MEQ TAB PO SCH (09:08)
[2017-04-02] MEDS: Amlodipine 10 MG TAB PO SCH (09:08)
[2017-04-02] MEDS: Baclofen 10 MG TAB PO SCH ×3 (12:24→23:23)
[2017-04-02] MEDS: Ondansetron ODT 4 MG TAB SL PRN ×3 (12:26→17:13)
[2017-04-02 15:45] LABS: Magnesium 1.8 mg/dL (1.6-2.6)
[2017-04-02 15:54] LABS: Potassium 2.9 mmol/L (3.5-5.1)
[2017-04-02] MEDS ORDERED: Potassium Chloride 40 MEQ in Sodium Chloride 0.9% 500 ML IVPB SCH (17:15)
[2017-04-02 21:23] LABS: Potassium 3.4 mmol/L (3.5-5.1)
[2017-04-02] MEDS ORDERED: Ondansetron HCl/PF 4 MG/2 ML Vial IVP PRN (22:28)
[2017-04-02] MEDS: Nystatin Powder 15 GM BOT TOP SCH (22:37)
[2017-04-02] MEDS: Lorazepam 1 MG TAB PO PRN (23:29)
[2017-04-03] MEDS: Sodium Chloride 0.9% 1,000 ML IV SCH ×2 (02:53→10:05)
[2017-04-03] MEDS ORDERED: Potassium Chloride 40 MEQ in Sodium Chloride 0.9% 500 ML IVPB SCH (04:00)
[2017-04-03 05:50] LABS: #Basophils 0.1 thou/uL (0.0-0.2); #Eosinphils 0.1 thou/uL (0.0-0.7); #Lymphocytes 2.5 thou/uL (1.20-3.40); #Monocytes 0.6 thou/uL (0.11-0.59); #Neutrophils 2.7 thou/uL (1.40-6.50); %Basophils 1.8 % (0.0-1.0); %Lymphocytes 41.7 % (21.0-51.0); %Monocytes 9.6 % (0.0-10.0); %Neutrophils 45.9 % (42.0-75.0); Hemoglobin 11.1 g/dL (12.0-16.0); Mean Corpuscular HGB CONC 30.8 g/dL (32.0-36.0); Mean Corpuscular Hemoglobin 23.3 pg (27.0-31.0); Mean Corpuscular Volume 75.6 fl (81.0-99.0); Platelet Count 206 thou/uL (130-400); RBC Distribution Width 21.4 % (11.5-14.5); Red Blood Cell (RBC) Count 4.77 mill/uL (4.20-5.40)
[2017-04-03 06:03] LABS: Anion Gap 10 mmol/L (10-20); BUN (Urea Nitrogen) 8 mg/dL (9.8-20.1); Calc. Creatinine Clearance 128 mL/min (70-130); Calcium 9.3 mg/dL (7.8-10.44); Carbon Dioxide 24 mmol/L (22-29); Chloride 107 mmol/L (98-107); Estimated GFR-MDRD Greater than 90; Glucose 80 mg/dL (70-105); Potassium 3.2 mmol/L (3.5-5.1); Sodium 138 mmol/L (136-145)
--- NOTE | 2017-04-03 06:31 | PDOC.FM ---
- Subjective Subjective: No acute events overnight. Complaining of feeling depressed. Says she has been depressed since her mom and sister ~ 1 year ago. Says she's not hungry which is why she's not eating. - Objective MAR Reviewed: Yes Vital Signs & Weight: Vital Signs (12 hours) Temp Pulse Resp BP Pulse Ox 04/02/17 22:00 98.9 F 92 16 100 04/02/17 20:00 98.9 F 92 16 163/99 H 100 Weight Admit Weight 70.3 kg Weight 70.3 kg I&O: 04/01/17 04/02/17 04/03/17 06:59 06:59 06:59 Intake Total 1920 1740 Output Total 800 2500 2450 Balance 1120 -760 -2450 Result Diagrams: 04/03/17 05:14 04/03/17 05:14 <Joan Flores - Last Filed: 04/03/17 07:52> - Objective Vital Signs & Weight: Vital Signs (12 hours) Temp Pulse Resp BP Pulse Ox 04/03/17 08:00 98.1 F 85 16 124/85 98 04/03/17 07:39 84 04/03/17 04:00 98.2 F 84 16 110/75 98 Weight Admit Weight 154 lb 15.759 oz Weight 154 lb 15.759 oz I&O: 04/02/17 04/03/17 04/04/17 06:59 06:59 06:59 Intake Total 1740 1710 240 Output Total 2500 4750 Balance -760 -3040 240 Result Diagrams: 04/03/17 05:14 04/03/17 05:14 <Everardo Veláqzuez - Last Filed: 04/03/17 10:29> Phys Exam - Physical Examination Constitutional: NAD HEENT: PERRLA, moist MMs Respiratory: no wheezing, clear to auscultation bilateral Cardiovascular: RRR, no significant murmur Gastrointestinal: soft, non-tender, no distention, positive bowel sounds Musculoskeletal: no edema, pulses present Neurological: non-focal, normal sensation Psychiatric: normal affect, A&O x 3 Skin: no rash <Joan Flores - Last Filed: 04/03/17 07:52> Dx/Plan (1) Acute encephalopathy Code(s): G93.40 - ENCEPHALOPATHY, UNSPECIFIED Status: Acute (2) Hypokalemia Code(s): E87.6 - HYPOKALEMIA Status: Acute (3) Marijuana abuse Code(s): F12.10 - CANNABIS ABUSE, UNCOMPLICATED Status: Acute (4) Anxiety and depression Code(s): F41.9 - ANXIETY DISORDER, UNSPECIFIED; F32.9 - MAJOR DEPRESSIVE DISORDER, SINGLE EPISODE, UNSPECIFIED Status: Chronic (5) Opioid dependence Code(s): F11.20 - OPIOID DEPENDENCE, UNCOMPLICATED Status: Chronic (6) Benign essential hypertension Code(s): I10 - ESSENTIAL (PRIMARY) HYPERTENSION Status: Chronic - Plan Plan: 56 yo f with pmhx of vulvar cancer s/p chemo and radiation with 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 1.)Suspected toxic encephalopathy-pt was a&ox4 this AM. -Etiology does not appear to be infectious, traumatic, tumor, stroke, endocrine , or stroke related. Cannot rule out a seizure at this point. -Pt currently gets pain meds from Dr. Charles. -She also per Cm gets HH 3x/week. Would recommend daily for at least 3 months if pt does not desire to go to a sniff. She has a brother that helps with transport [facility]. -We will continue MS Contin today with morphine IV for breakthrough pain. Her total OME's=42, we can change her MS Contin to q8h and continue 2mg IV morphine q2h for breakthrough pain. She is requesting her muscle relaxer for back and leg pain. 3.)Poor PO intake-causing hypokalemia. Encouraged PO intake. Consulted dietitician. Continue Glucerna BID. Pt does not want to go to a sniff. She currently has HH 3 days/week and we plan to set her up daily with HH upon discharge. 2.)Viral gastroenteritis-improved. n/v/d resolved. zofran prn. 3.)HTN-restarted amlodipine. Will monitor. 4.)Hypokalemia-Increased to 40KCL PO daily d/t persistently low potassium. Dietitician consulted who recommended a CC diet and glucerna shakes BID. 5.)Anxiety and Depression vs other mood d/o-pt has been off medication for almost a year. Does not appear to be having active SI/HI/AVH. Will assess mood today to see if she needs to be started back on prior medication of olanzapine. Pt was depressed and tearful yesterday. We will restart he zyprexa and lorazepam prn which she was on in the past. Unclear how long she has been off those medications. We will restart her Cymbalta today. Dispo: likely discharge today; pt would still benefit from going to a sniff. We will discuss this with her today again. However, she hasn't been interested in going up to this point. <Joan Flores - Last Filed: 04/03/17 07:52> Attending Addendum - Attending Addendum I personally evaluated the patient and discussed the management with . I agree with the History, Examination, Assessment and Plan documented above. 56 yo f admitted for suspected toxic encephalopathy. A&Ox4. Pain controlled. Plan to start spironolactone for bp control and to assist with hypokalemia. Dc later this afternoon. <Everardo Velázquez - Last Filed: 04/03/17 10:29>
[2017-04-03] MEDS ORDERED: Morphine ER 15 MG TAB PO SCH (06:45)
[2017-04-03] MEDS ORDERED: Potassium Chloride 20 MEQ TAB PO SCH (06:45)
[2017-04-03] MEDS: Baclofen 10 MG TAB PO SCH ×4 (07:04→22:18)
[2017-04-03 07:15] LABS: Iron 122 ug/dL (50-170); Iron Binding Capacity, Total 320 mcg/dL (265-497)
[2017-04-03] MEDS: OLANZapine 5 MG TAB PO SCH (07:38)
[2017-04-03] MEDS: Potassium Chloride 20 MEQ TAB PO SCH (07:38)
[2017-04-03] MEDS: Nitrofurantoin Monohyd/M-Cryst 100 MG CAP PO SCH ×2 (07:38→20:27)
[2017-04-03] MEDS: Magnesium Oxide 400 MG TAB PO SCH (07:38)
[2017-04-03] MEDS: Simethicone Chewable 80 MG TAB PO SCH ×4 (07:38→20:32)
[2017-04-03] MEDS: Cefdinir 300 MG CAP PO SCH ×2 (07:38→20:27)
[2017-04-03] MEDS: Enoxaparin Sodium 40 MG/0.4 ML SYRINGE SC SCH (07:39)
[2017-04-03] MEDS: Folic Acid 1 MG TAB PO SCH (07:39)
[2017-04-03] MEDS: Amlodipine 10 MG TAB PO SCH (07:39)
[2017-04-03] MEDS: Gabapentin 300 MG CAP PO SCH ×3 (07:39→20:27)
[2017-04-03 07:48] LABS: Folate (Folic Acid) 16.4 ng/mL (7.0-31.4)
[2017-04-03] MEDS: Nystatin Powder 15 GM BOT TOP SCH ×2 (07:51→22:19)
[2017-04-03] MEDS ORDERED: Spironolactone 25 MG TAB PO SCH (09:45)
[2017-04-03] MEDS: Morphine ER 15 MG TAB PO SCH ×2 (14:11→20:27)
[2017-04-03] MEDS ORDERED: Mirtazapine 15 MG TAB PO SCH (21:00)
[2017-04-03] MEDS: Lorazepam 1 MG TAB PO PRN (22:16)
[2017-04-04 05:51] LABS: Anion Gap 10 mmol/L (10-20); BUN (Urea Nitrogen) 18 mg/dL (9.8-20.1); Calc. Creatinine Clearance 139 mL/min (70-130); Calcium 8.7 mg/dL (7.8-10.44); Carbon Dioxide 26 mmol/L (22-29); Chloride 108 mmol/L (98-107); Estimated GFR-MDRD Greater than 90; Glucose 113 mg/dL (70-105); Sodium 141 mmol/L (136-145)
[2017-04-04 06:09] LABS: Potassium 2.9 mmol/L (3.5-5.1)
[2017-04-04] MEDS ORDERED: Potassium Chloride 20 MEQ TAB PO SCH ×3 (06:15→12:00)
--- NOTE | 2017-04-04 06:21 | PDOC.FM ---
- Subjective Subjective: No acute events overnight. Pt plans to coordinate a ride with her brother today who has her keys to her house. - Objective MAR Reviewed: Yes Vital Signs & Weight: Vital Signs (12 hours) Temp Pulse Resp BP Pulse Ox 04/03/17 21:00 99.6 F 94 16 04/03/17 20:00 99.6 F 94 16 112/78 93 L Weight Admit Weight 70.3 kg Weight 70.3 kg I&O: 04/02/17 04/03/17 04/04/17 06:59 06:59 06:59 Intake Total 1740 1710 1360 Output Total 2500 4750 1850 Balance -760 -3040 -490 Result Diagrams: 04/04/17 04:38 04/04/17 04:38 <Joan Flores - Last Filed: 04/04/17 09:37> - Objective Vital Signs & Weight: Vital Signs (12 hours) Temp Pulse Resp BP Pulse Ox 04/04/17 08:53 86 04/04/17 08:00 98.9 F 86 16 124/81 98 Weight Admit Weight 154 lb 15.759 oz Weight 154 lb 15.759 oz I&O: 04/03/17 04/04/17 04/05/17 06:59 06:59 06:59 Intake Total 1710 2010 360 Output Total 4750 3080 1250 Balance -3040 -1070 -890 Result Diagrams: 04/04/17 04:38 04/04/17 04:38 <Everardo Velázquez - Last Filed: 04/04/17 10:01> Phys Exam - Physical Examination Constitutional: NAD HEENT: PERRLA, moist MMs Respiratory: no wheezing, no rales, clear to auscultation bilateral Cardiovascular: RRR, no significant murmur Gastrointestinal: soft, non-tender, no distention, positive bowel sounds Musculoskeletal: no edema Deviation from normal: depressed mood <Joan Flores - Last Filed: 04/04/17 09:37> Dx/Plan (1) Acute encephalopathy Code(s): G93.40 - ENCEPHALOPATHY, UNSPECIFIED Status: Acute (2) Hypokalemia Code(s): E87.6 - HYPOKALEMIA Status: Acute (3) Marijuana abuse Code(s): F12.10 - CANNABIS ABUSE, UNCOMPLICATED Status: Acute (4) Anxiety and depression Code(s): F41.9 - ANXIETY DISORDER, UNSPECIFIED; F32.9 - MAJOR DEPRESSIVE DISORDER, SINGLE EPISODE, UNSPECIFIED Status: Chronic (5) Opioid dependence Code(s): F11.20 - OPIOID DEPENDENCE, UNCOMPLICATED Status: Chronic (6) Benign essential hypertension Code(s): I10 - ESSENTIAL (PRIMARY) HYPERTENSION Status: Chronic - Plan Plan: 56 yo f with pmhx of vulvar cancer s/p chemo and radiation with 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 1.)Suspected toxic encephalopathy-pt was a&ox4 this AM. -Etiology does not appear to be infectious, traumatic, tumor, stroke, endocrine , or stroke related. Cannot rule out a seizure at this point. Chronic hypokalemia could be a contributing factor. Pt states she never feels hungry and eats at most one meal a day. -Pt currently gets pain meds from Dr. Charles. -She also per Cm gets HH 3x/week. Would recommend daily for at least 3 months if pt does not desire to go to a sniff. She has a brother that helps with transport to and from [facility]. -We will continue MS Contin today with morphine IV for breakthrough pain. Her total OME's=63, we can change her MS Contin to q6h (home regimen) and continue 2mg IV morphine q2h for breakthrough pain. 3.)Poor PO intake-causing hypokalemia. Encouraged PO intake. Consulted dietitician. Continue Glucerna BID. Pt does not want to go to a sniff. She currently has HH 3 days/week and we plan to set her up daily with HH upon discharge. 2.)Viral gastroenteritis-improved. n/v/d resolved. zofran prn. 3.)HTN-restarted amlodipine. Will monitor. We also started the pt on spironolactone yesterday to assist with bp but to also assist with chronic hypokalemia 4.)Hypokalemia-Increased to 40KCL PO daily d/t persistently low potassium. Dietitician consulted who recommended a CC diet and glucerna shakes BID. Pt states she doesnt like the glucerna shakes. We also started spironolactone to assist with low potassium and elevated blood pressure. 5.)Anxiety and Depression vs other mood d/o-pt has been off medication for almost a year. Does not appear to be having active SI/HI/AVH. We stopped the zyprexa and did not end up started back the cymbalta. Instead, d/t her depressed mood and poor appetite, we started her on remeron. Dispo: likely discharge today; pt would still benefit from going to a sniff. Pt wants to go home. She plans for her brother to pick her up today ~2pm <Joan Flores - Last Filed: 04/04/17 09:37> Attending Addendum - Attending Addendum I personally evaluated the patient and discussed the management with Dr. Flores I agree with the History, Examination, Assessment and Plan documented above. Okay for discharge this afternoon. Pt is stable. Pain controlled. Will continue daily potassium chloride and spironolactone to assist with chronic hypokalemia. Encouraged PO intake. Arranged for HH daily. <Everardo Velázquez - Last Filed: 04/04/17 10:01>
[2017-04-04 06:25] LABS: Eosinophils 4 % (0-10); Hemoglobin 9.7 g/dL (12.0-16.0); Hypochromia SLIGHT = 6-15 cells (100X) (0-5/hpf); Lymphocytes 55 % (21-51); MDiff Complete? YES; Mean Corpuscular HGB CONC 30.9 g/dL (32.0-36.0); Mean Corpuscular Hemoglobin 23.8 pg (27.0-31.0); Mean Corpuscular Volume 77.1 fl (81.0-99.0); Microcytosis SLIGHT = 6-15 cells (100X) (0-5/hpf); Monocytes 5 % (0-10); Neutrophil 36 % (42-75); Platelet Count 187 thou/uL (130-400); RBC Distribution Width 21.7 % (11.5-14.5); Red Blood Cell (RBC) Count 4.07 mill/uL (4.20-5.40); White Blood Cell (WBC) Count 5.1 thou/uL (4.8-10.8)
[2017-04-04] MEDS: Morphine ER 15 MG TAB PO SCH ×2 (06:54→15:15)
[2017-04-04] MEDS: Baclofen 10 MG TAB PO SCH ×2 (06:55→11:26)
[2017-04-04] MEDS ORDERED: Spironolactone 25 MG TAB PO SCH (08:00)
[2017-04-04 08:13] VITALS: BP 124/81
[2017-04-04] MEDS: Cefdinir 300 MG CAP PO SCH (08:52)
[2017-04-04] MEDS: Nitrofurantoin Monohyd/M-Cryst 100 MG CAP PO SCH (08:52)
[2017-04-04] MEDS: Enoxaparin Sodium 40 MG/0.4 ML SYRINGE SC SCH (08:52)
[2017-04-04] MEDS: Magnesium Oxide 400 MG TAB PO SCH (08:53)
[2017-04-04] MEDS: Folic Acid 1 MG TAB PO SCH (08:53)
[2017-04-04] MEDS: Gabapentin 300 MG CAP PO SCH ×2 (08:53→15:15)
[2017-04-04] MEDS: Amlodipine 10 MG TAB PO SCH (08:53)
[2017-04-04] MEDS: OLANZapine 5 MG TAB PO SCH (08:53)
[2017-04-04] MEDS: Simethicone Chewable 80 MG TAB PO SCH ×2 (09:03→13:13)
[2017-04-04] MEDS: Nystatin Powder 15 GM BOT TOP SCH (09:04)
[2017-04-04 10:13] VITALS: TEMP 97.4
[2017-04-04 12:37] LABS: Potassium 4.3 mmol/L (3.5-5.1)
--- NOTE | 2017-04-06 12:43 | DIS-2 ---
DATE OF ADMISSION: 03/30/2017 DATE OF DISCHARGE: 04/04/2017 ADMITTING RESIDENT: Joan Flores M.D. ADMITTING ATTENDING: Real Leslie M.D. DISCHARGE RESIDENT: Joan Flores M.D. DISCHARGE ATTENDING: Everardo Velázquez M.D. CONSULTATIONS: None. PROCEDURES: 1. Chest x-ray, no radiographic evidence of acute cardiopulmonary process. 2. EKG sinus rhythm with first degree AV block, nonspecific intraventricular conduction block. 3. Brain CT, no definite evidence of acute intracranial process and the visualized portions of the brain. PRIMARY DIAGNOSES: 1. Toxic encephalopathy. 2. Inadequate nutrition secondary to poor p.o. intake. 3. Viral gastroenteritis. 4. Hypertension. 5. Hypokalemia. 6. Anxiety. 7. Depression. DISCHARGE MEDICATIONS: 1. Amlodipine 10 mg orally daily. 2. Aspirin 81 mg oral daily. 3. Tums 1000 mg oral every 4 hours as needed. 4. Cefdinir 300 mg oral twice daily. 5. Lorazepam 1 mg oral every 8 hours as needed. 6. Magnesium oxide 400 mg oral daily. 7. Morphine extended release 50 mg oral q.8 hours. 8. Macrobid 100 mg oral twice daily. 9. Mirtazapine 15 mg oral at bedtime. 10. Spironolactone 12.5 mg oral every morning with breakfast. 11. Folic acid 1 tablet oral daily. 12. Baclofen 10 mg oral every 6 hours. 13. Gabapentin 300 mg oral 3 times a day. 14. K-Dur 40 mEq oral every morning with breakfast. DISCONTINUED MEDICATIONS: Zyprexa 10 mg oral at bedtime. HISTORY OF PRESENT ILLNESS AND HOSPITAL COURSE: 1. This is a 56-year-old female with a past medical history of vulvar cancer status post chemo and radiation with residual perineal fibrosis and a right disarticulation, who presents via EMS with altered mental status. She was found in her home covered in feces on the floor altered by EMS, it was unclear when we first admitted her or the story was unclear when we first admitted her. However, the next day, her mentation improved and she was able to give us a history of which she said that she ate a sandwich and then suddenly felt weak and had several episodes of diarrhea, could not get to the bathroom and fell to the floor and was too weak to move, at which point, she pressed her Life Alert button and EMS responded to the call. Upon admission, her blood pressure was elevated at 121/85, pulse, respiratory rate, temperature, and pulse ox were normal. Her physical exam was positive for a right lower extremity disarticulation. Her abdomen had ileostomy tube in the right lower quadrant. Respiratory exam was normal. Cardiovascular exam was normal. She had an obvious perineal fibrotic scar/mass as a result of her vulvar cancer with chemo and radiation treatment. Her CBC within normal limits upon admission and had a CMP within normal limits aside from hypokalemia of 2.7 and glucose of 128. Her UA was positive for 4+ bacteria, 10 to 20 white blood cells. Her UDS is positive for marijuana, opiates, and oxycodone. Her chest x-ray showed no cardiopulmonary process. She was admitted for acute toxic encephalopathy it was thought to be due to too much ingestion of her pain medication. She required admission to the hospital approximately a year ago for similar presentation; however, after looking at her medications of OxyContin and MS Contin, she was found to have refilled those on 03/19/2017, which were being prescribed from a Dr. Charles, who is her oncologist at [facility]. Pharmacy counted the pills, and it did not appear that she had an acute overdose like event; however, she may be chronically just receiving too high a dosage which is causing her to be altered. It also seemed like throughout her hospitalization that there are multiple contributing factors in addition to the ingestion of her home medications of OxyContin and MS Contin. One contributing factor is actually decreased p.o. intake with very poor nutrition. She says she is never hungry and only eats 1 meal a day. She was hypokalemic daily here in the hospital requiring multiple repletion of potassium daily. She was seen by a dietitian who recommended Glucerna b.i.d., but she does not like that the patient refused as she does not like shakes. It was thought that the patient would benefit from starting mirtazapine to help stimulate her appetite as well as to help treat her depression, so she was started on that during her hospitalization. Based on her total OME needs, upon discharge, she only was requiring MS Contin 15 mg q.8 hours. The OxyContin was never restarted. A brain CT was done initially to rule out acute infarct or bleed, so the altered mentation appeared to be due to a combination of hypokalemia with inadequate nutrition as well as chronic toxic ingestion of her opioid medications for her pain. 2. Hypokalemia. This was replaced daily with IV and p.o. potassium. Potassium was normal upon discharge; however, she was discharged on potassium to take daily at home. 3. Diabetes. Her hemoglobin A1c was checked. She was placed on sliding scale insulin. Hemoglobin A1c was found to be 5.1. Her glucose was well controlled during the admission just on sliding scale insulin. 4. Anxiety and depression versus other mood disorder. It appears in the past, she was on Zyprexa, it is unclear if she has depression or bipolar disorder. She states that she takes Cymbalta at home. We recommended switching to mirtazapine to help with appetite stimulant as well as to help with her depression. She does appear to be chronically depressed, did not have active SI /HI or AVH. 5. Hypertension. She was started on amlodipine and we also started her on spironolactone to assist in not only her blood pressure, but also to assist in her hypokalemia. 6. Viral gastroenteritis that resolved. She was without any more episodes of diarrhea during her hospitalization. She was given Zofran p.r.n. We had case management come to see her as there was some concern for her care upon discharge. We recommended placement in a SNF; however, she states that she wants to go home and that her brother is going to take her to her appointments. She is able to transfer from her wheelchair on her own. She also had home health 3 times a day who recommended increasing home health to daily as it appears that she is not eating enough and having difficult time caring for herself. DISPOSITION: Stable. DISCHARGE INSTRUCTIONS: 1. Location: Home with home health daily. 2. Diet: No restrictions. 3. Activity: No restrictions. Recommend daily PT, OT for continued strength in order to help her and be able to transfer herself from her wheelchair to other furniture. 4. Followup: Recommended that she follow up with her primary care physician, Dr. Otero, within 1 week. She was also recommend that she follow up with Dr. Charles for refills regarding her pain medications of MS Contin and OxyContin. She was informed that during the hospitalization she only required MS Contin not the OxyContin. MTDD
[2017-04-08] MEDS ORDERED: Ergocalciferol 1.25 MG(50,000 UNITS) CAP PO SCH (09:00)
--- NOTE | 2017-04-10 17:46 | EKG ---
Test Reason : AMS Blood Pressure : / mmHG Vent. Rate : 090 BPM Atrial Rate : 090 BPM P-R Int : 218 ms QRS Dur : 126 ms QT Int : 408 ms P-R-T Axes : 077 025 030 degrees QTc Int : 499 ms Sinus rhythm with 1st degree A-V block Non-specific intra-ventricular conduction block Abnormal ECG Confirmed by ALNA DUKES, BETTE ([id number]), editor department SEBASTIAN RANDOLPH ([id number]) on 04/10/2017 5:45:47 PM Referred By: LANA Confirmed By:BETTE SCHWARTZ MD
== END 2017-04-04 15:00 | disposition home health service (06) | DRG 917 ==
LOC: ERS 09:45 → ERHOLD 11:49 → T4-B 14:18
PROVIDERS: ADMIT Family Medicine; ATTEND Family Medicine
DX: T40.2X1A Poisoning by other opioids, accidental (unintentional), initial encounter (principal); G92 Toxic encephalopathy; L89.152 Pressure ulcer of sacral region, stage 2; E87.2 Acidosis; Z89.611 Acquired absence of right leg above knee; F11.20 Opioid dependence, uncomplicated; C51.9 Malignant neoplasm of vulva, unspecified; D64.9 Anemia, unspecified; N39.0 Urinary tract infection, site not specified; E87.6 Hypokalemia; G89.29 Other chronic pain; I10 Essential (primary) hypertension; Z87.891 Personal history of nicotine dependence; F32.9 Major depressive disorder, single episode, unspecified; F12.10 Cannabis abuse, uncomplicated; F41.9 Anxiety disorder, unspecified; G40.909 Epilepsy, unspecified, not intractable, without status epilepticus; A08.4 Viral intestinal infection, unspecified; R62.7 Adult failure to thrive
CPT/HCPCS: 36415; 36416; 70450; 71045; 80048; 80053; 80061; 80306; 81003; 81015; 82553; 82607; 82728; 82746; 83036; 83540; 83550; 83605; 83735; 84100; 84484; 85025; 85060; 87040; 87077; 87086; 87186; 93005; 93010; 94760; 96361; 96365; 96367; 96375; J2270; A4216; C9113; G8996-GN-CH; G8996-GN-CM; G8997-GN-CH; G8997-GN-CK; J0131; J1650; J1956; J2060; J2405; J2550; J3475; J3480; J7050; Q0162

== ENCOUNTER 2017-09-22 10:37 | Emergency (ER) | payer MEDICARE ==
[2017-09-22] MEDS ORDERED: Ondansetron HCl/PF 4 MG/2 ML Vial ONE (11:42)
[2017-09-22 12:01] LABS: #Lymphocytes 0.7 thou/uL (1.20-3.40); #Monocytes 0.2 thou/uL (0.11-0.59); %Basophils 0.1 % (0.0-1.0); %Eosinophils 0.1 % (0.0-10.0); %Lymphocytes 8.9 % (21.0-51.0); %Monocytes 2.5 % (0.0-10.0); %Neutrophils 88.5 % (42.0-75.0)
[2017-09-22 12:16] LABS: Hemoglobin 11.8 g/dL (12.0-16.0); MDiff Complete? YES; Mean Corpuscular HGB CONC 30.9 g/dL (32.0-36.0); Mean Corpuscular Hemoglobin 23.5 pg (27.0-31.0); Mean Corpuscular Volume 76.2 fL (78.0-98.0); Mean Platelet Volume 10.7 fL (7.4-10.4); PLT Morphology Comment Appears Adequate; Platelet Count 264 thou/uL (130-400); Polychromasia SLIGHT = 2-3 cells (100X) (0-2/hpf); RBC Distribution Width 19.9 % (11.5-14.5); Red Blood Cell (RBC) Count 5.02 mill/uL (4.20-5.40); Target Cells SLIGHT = 2-5 cells (100X) (0-1/hpf); White Blood Cell (WBC) Count 7.9 thou/uL (4.8-10.8)
[2017-09-22 12:21] LABS: ALT (SGPT) 8 U/L (8-55); AST (SGOT) 11 U/L (5-34); Albumin 4.4 g/dL (3.5-5.0); Alkaline Phosphatase 151 U/L (40-150); Anion Gap 16 mmol/L (10-20); BUN (Urea Nitrogen) 8 mg/dL (9.8-20.1); Bilirubin, Total 0.2 mg/dL (0.2-1.2); Calc. Creatinine Clearance 0 mL/min (70-130); Calcium 10.1 mg/dL (7.8-10.44); Carbon Dioxide 26 mmol/L (22-29); Chloride 101 mmol/L (98-107); Estimated GFR-MDRD Greater than 90; Globulin 4.8 g/dL (2.4-3.5); Glucose 170 mg/dL (70-105); Protein, Total 9.2 g/dL (6.0-8.3); Sodium 140 mmol/L (136-145)
[2017-09-22 12:23] LABS: Potassium 2.9 mmol/L (3.5-5.1)
[2017-09-22 12:33] LABS: Bilirubin Negative (Negative); Blood, Urine Negative (Negative); Clarity CLOUDY (Clear); Glucose, Urine (Dipstick) Negative (Negative); Leukocyte Trace (Negative); Nitrite Positive (Negative); Protein, Urine (Dipstick) 30 mg/dL (Neg-Trace); Specific Gravity, Urine 1.009 (1.002-1.036); Urobilinogen 0.2 mg/dL (0.2-1.0); pH, Urine 8.5 (5.0-9.0)
[2017-09-22 12:36] LABS: Pathc Cast-AUWi Flag 2.47 (0-2.49); RBC/HPF 0-3 HPF (0-3)
[2017-09-22 12:59] LABS: Hyaline Casts/LPF 0-3 HYALINE CAST LPF (0-3 Hyaline)
[2017-09-22 13:00] LABS: Bacteria/HPF 2+ HPF (None Seen); Renal Epithelial None Seen HPF (0-3); Transitional Epithelial NONE SEEN HPF (0-3)
[2017-09-22] MEDS ORDERED: cloNIDine 0.1 MG TAB ONE (13:24)
[2017-09-22] MEDS ORDERED: Pot Chloride/Pot Bicarb/Cit Ac 25 mEq Effervescent Tablet ONE (14:18)
[2017-09-22] MEDS ORDERED: Fentanyl 100 MCG/2 ML VIAL ONE (14:32)
== END 2017-09-22 16:50 | disposition home or self-care (01) ==
LOC: ERS 10:37
DX: F19.939 Other psychoactive substance use, unspecified with withdrawal, unspecified (principal); C51.9 Malignant neoplasm of vulva, unspecified; D64.9 Anemia, unspecified; F41.9 Anxiety disorder, unspecified; F32.9 Major depressive disorder, single episode, unspecified; I10 Essential (primary) hypertension; M19.90 Unspecified osteoarthritis, unspecified site; Z79.899 Other long term (current) drug therapy
CPT/HCPCS: 36415; 80053; 81003; 81015; 85025; 93005; 96374; 96375; J2405; J3010

== ENCOUNTER 2017-10-13 11:10 | Outpatient (CLI) | payer MEDICARE | END 2017-10-13 11:11 | disposition home or self-care (01) | LOC: BICMAMMO 11:10 | PROVIDERS: ATTEND Family Medicine | DX: N63.20 Unspecified lump in the left breast, unspecified quadrant (principal); Z85.44 Personal history of malignant neoplasm of other female genital organs | CPT/HCPCS: 76642 ×2; 77066; G0279 ==

== ENCOUNTER 2017-10-14 13:52 | Inpatient (IN) | payer MEDICARE ==
[2017-10-14] MEDS ORDERED: Ondansetron HCl/PF 4 MG/2 ML Vial ONE (14:10)
[2017-10-14 14:31] LABS: Hemoglobin 12.1 g/dL (12.0-16.0); Mean Corpuscular Hemoglobin 24.1 pg (27.0-31.0); Mean Corpuscular Volume 75.3 fL (78.0-98.0); Mean Platelet Volume 10.7 fL (7.4-10.4); Platelet Count 277 thou/uL (130-400); RBC Distribution Width 20.4 % (11.5-14.5); Red Blood Cell (RBC) Count 5.04 mill/uL (4.20-5.40); White Blood Cell (WBC) Count 9.7 thou/uL (4.8-10.8)
[2017-10-14] MEDS ORDERED: Piperacillin/Tazobactam 4.5 GM VIAL ONE (14:50)
[2017-10-14 14:51] LABS: ALT (SGPT) Less than 7 U/L (8-55); AST (SGOT) 9 U/L (5-34); Albumin 4.7 g/dL (3.5-5.0); Alkaline Phosphatase 166 U/L (40-150); Anion Gap 14 mmol/L (10-20); Anisocytosis SLIGHT = 6-15 cells (100X) (0-5/hpf); BUN (Urea Nitrogen) 9 mg/dL (9.8-20.1); Band 2 % (5-11); Bilirubin, Total 0.3 mg/dL (0.2-1.2); Calc. Creatinine Clearance 0 mL/min (70-130); Calcium 10.7 mg/dL (7.8-10.44); Carbon Dioxide 24 mmol/L (22-29); Chloride 104 mmol/L (98-107); Estimated GFR-MDRD Greater than 90; Globulin 4.9 g/dL (2.4-3.5); Glucose 131 mg/dL (70-105); Hypochromia SLIGHT = 6-15 cells (100X) (0-5/hpf); Lipase Less than 4 U/L (8-78); Lymphocytes 17 % (21-51); MDiff Complete? YES; Monocytes 3 % (0-10); Neutrophil 78 % (42-75); PLT Morphology Comment Appears Adequate; Protein, Total 9.6 g/dL (6.0-8.3); Sodium 139 mmol/L (136-145); Target Cells SLIGHT = 2-5 cells (100X) (0-1/hpf)
[2017-10-14 14:52] LABS: Potassium 2.8 mmol/L (3.5-5.1)
--- NOTE | 2017-10-14 15:31 | RAD ---
AP VIEW CHEST: Date: 10/14/17 INDICATION: History of active vomiting. FINDINGS: No air space consolidation is evident. No pleural effusion is evident. There is mild cardiomegaly. No acute osseous abnormality is evident. IMPRESSION: No acute cardiopulmonary abnormality. POS: JAMESH
--- NOTE | 2017-10-14 16:16 | CT ---
NONCONTRAST CT ABDOMEN AND PELVIS: 10/14/17 HISTORY: Abdominal pain. Patient found actively vomiting at home. Has colostomy. COMPARISON: 05/27/16 FINDINGS: There is moderate left sided hydronephrosis. Mild left hydronephrosis was present on the prior exam. The most proximal left ureter is also mildly prominent, but the distal left ureter is not imaged. The urinary bladder is completely decompressed and not visualized. There was a left UVJ calculus noted o n prior exam in 2017. While there are calcifications again seen in the pelvis, the majority of these calcifications were also present on a prior exam and may be related to phleboliths. There is stable m ild right sided hydronephrosis and hydroureter, again the distal right ureter is unable to be visuali zed. There are punctate nonobstructing bilateral renal calculi visualized. The lung bases are clear. There are postsurgical changes involving loops of bowel in the upper abdomen related with right lower quadrant ostomy. IVC filter is noted in place. There is increased density material seen layering within the gallbladder lumen which could be related to multiple gallbladder calculi layering dependently and/or sludge. There is a subcentimeter too small to characterize hypodense lesion in the medial aspect of the media l segment right hepatic lobe. The spleen and bilaterqal adrenal glands demonstrate a grossly normal nonenhanced CT appearance. The common duct is dilated measuring 1 cm. In addition, the pancreatic duct is also mildly prominent. The common duct dilatation was similar to prior exam. The exact etiology is unable to be determined on this nonenhanced CT study. The uterus demonstrates a lobulated appearance and is heterogeneous likely related to multiple uterin e fibroids. There is a mass-like structure in the lower pelvis which is immediately adjacent to the r egion of the uterus measuring 3.3 cm; this could be related to a hemmorhagic adnexal lesion. Vascular calcifications in the abdominal aorta involving the iliac arteries. Again noted are postsurgical changes related to amputation of the right lower extremity with stable d estructive and chronic changes of the pelvis including the proximal left femur. There is stable thickening of the soft tissues of the proximal right thigh with lobulated appearance in the region of the vulvar soft tissues and proximal right thigh. Neoplastic process is a possibilit y. There are varicosities involving the left lower extremity with subcutaneous edema laterally involving the visualized proximal left lower extremity. IMPRESSION: 1. Moderate left and mild right hydronephrosis. The urinary bladder is completely decompressed a nd not evaluated on this exam. A left UVJ calculus was seen on the prior study in 05/27/16. Calcificat ion in this region is not definitively visualized on today's exam. There are multiple calcifications in the pelvis, some of which are related to phleboliths and some of which are related to calcified ut erine fibroids. The exact etiology for bilateral hydronephrosis is uncertain based on this nonenhance d CT scan exam. 2. Postsurgical changes of loops of bowel in the right mid abdomen and right lower quadrant with evidence of an ostomy in the right lower quadrant. 3. Dilatation of the common duct and pancreatic duct of uncertain etiology. No obvious pancreati c head mass can be delineated on this exam, but lack of intravenous contrast precludes adequate evalu ation of the pancreatic head. 4. Lobulated uterus with increased density masses related to multiple uterine fibroids. There is a mass-like structure seen in the lower pelvis measuring 3.3 cm which has mixed. A hemorrhagic adnex al lesion is a possibility. A pelvic ultrasound may be beneficial for further evaluation. This is in the expected location of the distal left ureter and etiology for ureteral obstruction is unable to be identified on this exam. 5. Lobulated appearance of the soft tissues with skin thickening involving the vulvar region and proximal right thigh. 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 6. Chronic osseous changes of the pelvis. 7. Bilateral nephrolithiasis. POS: DOROTA
[2017-10-14] MEDS ORDERED: Potassium Chloride 20 MEQ TAB ONE (16:28)
[2017-10-14] MEDS ORDERED: Morphine 4 MG/ML VIAL ONE (17:24)
[2017-10-14 18:37] LABS: Lactic Acid 0.7 mmol/L (0.5-2.2)
[2017-10-14] MEDS ORDERED: Acetaminophen 325 MG TAB PO PRN (19:58)
[2017-10-14] MEDS ORDERED: Ondansetron ODT 4 MG TAB SL PRN (19:58)
[2017-10-14] MEDS ORDERED: Ondansetron HCl/PF 4 MG/2 ML Vial IVP PRN (19:58)
[2017-10-14] MEDS ORDERED: Piperacillin/Tazobactam 3.375 GM in Sodium Chloride 0.9% 100 ML IVPB SCH (21:00)
[2017-10-14] MEDS ORDERED: Promethazine 25 MG TAB PO PRN (21:06)
--- NOTE | 2017-10-14 21:08 | PDOC.FPRHP ---
Addendum entered and electronically signed by Nati Velez MD 10/15/17 06:15 : Social Hx: Lives alone, brother checks in on her. Denies tobacco or alcohol use. Reports marijuana use, last used 2 weeks ago Original Note: - History of Present Illness Chief Complaint: Nausea, vomiting headache History of Present Illness: Ms Olivera is a 56yo female with pmh of vulvar cancer, chronic pain 2/2 malignancy, HTN, OA, anemia presenting with nausea, vomiting, and abdominal pain that started yesterday. Wednesday10/11/17 she had a throbbing headache and didn't feel well. The following day she began to having n/v and has not been able to tolerate PO intake since. Reports chills at home but did not check her temperature. She lives at home and had previously had home health and assistance from her brother. She reports needing help at home to care for herself. ED Course: Morphine 4mg x2, KCL 60 PO, Vanc 1 g, Zosyn 4.5g, 30ml/kg NS, zofran - Allergies/Adverse Reactions Allergies Allergy/AdvReac Type Severity Reaction Status Date / Time iodine Allergy Verified 10/14/17 20:21 - Home Medications Medication Instructions Recorded Confirmed Type Folic Acid 1 tablet PO DAILY 07/07/15 10/14/17 History Baclofen 10 mg PO QID PRN 03/17/16 10/14/17 History Amlodipine [Norvasc] 10 mg PO DAILY #30 tab 04/02/17 10/14/17 Rx Magnesium Oxide 400 mg PO DAILY #30 tab 04/02/17 10/14/17 Rx Potassium Chloride [K-Dur] 40 meq PO QAM-WM 30 Days #30 tab 04/02/17 10/14/17 Rx Amlodipine [Norvasc] 10 mg PO QAM 10/14/17 10/14/17 History Baclofen 10 mg PO QID 10/14/17 10/14/17 History Benzonatate 100 mg PO TID 10/14/17 10/14/17 History DULoxetine HCl 120 mg PO DAILY 10/14/17 10/14/17 History DULoxetine HCl 120 mg PO QAM 10/14/17 10/14/17 History Gabapentin 600 mg PO TID 10/14/17 10/14/17 History Hyoscyamine Sulfate [Levsin SL] 0.125 mg PO TID 10/14/17 10/14/17 History Morphine ER [MS Contin] 15 mg PO Q6H PRN 10/14/17 10/14/17 History Pantoprazole Sodium 40 mg PO DAILY 10/14/17 10/14/17 History Polyethylene Glycol 3350 [Miralax] 17 gm PO DAILY 10/14/17 10/14/17 History Promethazine [Phenergan] 25 mg PO PRN PRN 10/14/17 10/14/17 History Sennosides [Nataliya-Audrey] 8.6 mg PO BID 10/14/17 10/14/17 History busPIRone HCl [Buspirone HCl] 15 mg PO QID PRN 10/14/17 10/14/17 History oxyCODONE HCl [Oxycontin] 20 mg PO Q12H 10/14/17 10/14/17 History OxyCONTIN 20 mg PO PRN PRN 10/15/17 10/15/17 History Dronabinol 2.5 mg PO DAILY #30 capsule 10/18/17 Rx - History PMHx: HTN, vulvar cancer, OA, Anemia, chronic pain PSHx: right leg amputation, tonsillectomy, BLT, hernia repair FHx: Sister- CAD, HTN Mother- CAD, DM, HTN Father- DM, HTN Social: - Review of Systems General: reports: fever/chills, weight/appetite/sleep changes, fatigue Eyes: denies: eye pain, vision changes ENT: denies: nasal congestion, rhinorrhea Respiratory: denies: cough, congestion, shortness of breath Cardiovascular: denies: chest pain, edema Gastrointestinal: reports: nausea, vomiting, abdominal pain Genitourinary: reports: other (urostomy) Skin: reports: lesions (vulvar cancer) Musculoskeletal: reports: pain, tenderness Neurological: reports: weakness - Vital signs BP: 157/102 HR: 107 RR: 18 Tmax: 99.3 Pox: 100% on RA Wt: 48.081kg - Physical Exam Constitutional: awake, alert and oriented, other (In obvious distress) HEENT: normocephalic and atraumatic, PERRLA, other (dry mucous membranes) Neck: trachea midline Chest: other (very tender to palpation) Heart: RRR, normal S1/S2 Lungs: CTAB, no respiratory distress Abdomen: soft, bowel sounds present, other (urostomy/ileostomy) Musculoskeletal: other (right amputation at hip) -Skin: extensive vulvar lesions involving external genitalia Psychiatric: other (very tearful) FMR H&P: Results - Labs Result Diagrams: 10/15/17 12:22 10/15/17 12:22 Lab results: WBC 9.7 thou/uL (4.8-10.8) 10/14/17 14:15 Hgb 12.1 g/dL (12.0-16.0) 10/14/17 14:15 Hct 38.0 % (36.0-47.0) 10/14/17 14:15 MCV 75.3 fL (78.0-98.0) L 10/14/17 14:15 Plt Count 277 thou/uL (130-400) 10/14/17 14:15 Band Neuts % (Manual) 2 % (5-11) L 10/14/17 14:15 Sodium 139 mmol/L (136-145) 10/14/17 14:15 Potassium 2.8 mmol/L (3.5-5.1) L* 10/14/17 14:15 Chloride 104 mmol/L (98-107) 10/14/17 14:15 Carbon Dioxide 24 mmol/L (22-29) 10/14/17 14:15 BUN 9 mg/dL (9.8-20.1) L 10/14/17 14:15 Creatinine 0.67 mg/dL (0.6-1.1) 10/14/17 14:15 Glucose 131 mg/dL (70-105) H 10/14/17 14:15 Lactic Acid 0.7 mmol/L (0.5-2.2) 10/14/17 18:16 Calcium 10.7 mg/dL (7.8-10.44) H 10/14/17 14:15 Total Bilirubin 0.3 mg/dL (0.2-1.2) 10/14/17 14:15 AST 9 U/L (5-34) 10/14/17 14:15 ALT Less than 7 U/L (8-55) L 10/14/17 14:15 Alkaline Phosphatase 166 U/L (40-150) H 10/14/17 14:15 Serum Total Protein 9.6 g/dL (6.0-8.3) H 10/14/17 14:15 Albumin 4.7 g/dL (3.5-5.0) 10/14/17 14:15 Lipase Less than 4 U/L (8-78) L 10/14/17 14:15 - EKG Interpretation EKG: sinus tachycardia 104, frequent PVCs. Bilateral atrial enlargement - Radiology Interpretation CT scan - abdomen Status: report reviewed by me Additional comment: Moderate Left and mild right hydronephrosis. No urinary bladder. left UVJ calculus seen on prior study in 05/27/16. multiple calcifications in pelvic some related to phleboliths and some calcified uterine fibroids. postsurgical changes of loops of bowel. dilation of common duct and pancreatic duct of uncertain etiology. Lobulated uterus with increased density masses. Bilateral nephrolithiasis. FMR H&P: A/P - Problem List (1) Abdominal pain of multiple sites Status: Resolved Code(s): R10.9 - UNSPECIFIED ABDOMINAL PAIN (2) Hypokalemia Status: Resolved Code(s): E87.6 - HYPOKALEMIA (3) Marijuana abuse Status: Acute Code(s): F12.10 - CANNABIS ABUSE, UNCOMPLICATED (4) Anxiety and depression Status: Chronic Code(s): F41.9 - ANXIETY DISORDER, UNSPECIFIED; F32.9 - MAJOR DEPRESSIVE DISORDER, SINGLE EPISODE, UNSPECIFIED (5) H/O malignant neoplasm of vulva Status: Chronic Code(s): Z85.44 - PERSONAL HISTORY OF MALIG NEOPLASM OF FEMALE GENITAL ORGANS (6) Hypertension Status: Chronic Code(s): I10 - ESSENTIAL (PRIMARY) HYPERTENSION Qualifiers: (7) Opioid dependence Status: Chronic Code(s): F11.20 - OPIOID DEPENDENCE, UNCOMPLICATED (8) Tobacco abuse Status: Chronic Code(s): Z72.0 - TOBACCO USE - Plan SIRS from unknown source - tachycardic, lactic acidosis - Blood cultures pending - lactic acid 2.3-> 0.7 - Continue Zosyn - LR @ 75 - unable to obtain UA due to combined ileostomy/urostomy Intractable nausea - Continue home zofran, promethazine, dronabinol - LR @ 75 - slowly advance diet as tolerated, bland diet Vulvar Cancer - Continue home pain meds regimen morphine 15mg q6h, oxycotin 20mg q12hr with additional for breakthrough - Pallative Care consulted Hypokalemia - Replaced with IV and PO - AM BMP - Continue to monitor Chronic Pain - Continue home pain regimen with additional for breakthrough - May consider scheduled dosing Depression - Continue home meds HTN - Continue home amlodpine FMR H&P: Upper Level - Pertinent history Ms. Olivera is a 56 yo AAM with PMHx of vulvar cancer who presents with approximately 2 days of n/v and inability to keep down PO. She reports feeling chills and overall poorly. She has constant chronic pain for which she is on multiple medications. She is tearful and states she is tired of being in so much pain. She is difficult to elicit a consistent history from 2/2 her tearfulness. However, she is able to recite the frequency in which she takes her medications. She states "your life can change in an instant" and frequently does not answer questions due to her discomfort. Her pain is not consistently in once place and migrates all over her body. - Pertinent findings Gen: awake, alert and oriented x3, soft spoken HEENT: EOMI, conjunctiva non-injected, sclera slightly darkened, mild JVD on R CV: RRR, no murmur noted, L chest wall TTP, no skin changes RESP: CTAB ABD: soft, nontender, ileostomy in place draining stool and urine : Vulvar mass extending to mons Ext: R total limb amputation, LLE with no-edema but L thigh disproportionately large, no TTP, L dorsalis pedis 1+ - Plan Date/Time: 10/14/172051 1. SIRS from unknown source, suspected UTI: Tachycardic with reported fever, lactic acidosis downtrending. BCx pending. Continue Zosyn. Gentle fluids @ 75 mL /hr. UCx not feasible due to combined ileostomy/urostomy 2. Intractable nausea: Continue home zofran, promethazine, dronabinol. LR @ 75 mL/hr. Will advance diet as tolerated. 3. Vulvar Cancer: Continue home pain medication regimen with additional for breakthrough. Palliative care consultation. 4. Chronic Pain: Home pain medications. Recommend scheduled dosing as opposed to PRN if patient is taking consistently. Long acting morphine not indicated for breakthrough pain. 5. Depression: Home medication. Discussion with palliative care for goals of care may be very beneficial. 6. HTN: Home amlodipine. 7. Hypokalemia: s/p repletion in ED. Monitor and replete as indicated. I, Shi Garzon MD, have evaluated this patient and agree with findings/plan as outlined by academic intern resident. Pertinent changes/additions are listed here. Attending Addendum - Attending Addendum Date/Time: 11/07/17 [id number] I personally evaluated the patient and discussed indications for the procedure described by Dr. Velez on 10/15/18. I directly supervised and participated in the Paracentesis and Thoracentesis and I agree with the description of procedure as documented above without any addition or exceptions.
[2017-10-14] MEDS: Lactated Ringer's 1,000 ML IV SCH (21:52)
[2017-10-14] MEDS: busPIRone HCl 10 MG TAB PO PRN (21:53)
[2017-10-14] MEDS: Morphine ER 15 MG TAB PO PRN (21:53)
[2017-10-14] MEDS: Piperacillin/Tazobactam 3.375 GM in Sodium Chloride 0.9% 100 ML IVPB SCH (22:01)
[2017-10-14] MEDS ORDERED: Potassium Chloride 40 MEQ in Premix Bag 1 BAG IVPB SCH (22:45)
[2017-10-14] MEDS: Potassium Chloride 20 MEQ in Premix Bag 1 BAG IVPB SCH (23:51)
[2017-10-14] MEDS: Baclofen 10 MG TAB PO PRN (23:52)
[2017-10-15] MEDS ORDERED: oxyCODONE ER 20 MG TAB PO SCH (00:30)
[2017-10-15] MEDS ORDERED: Morphine 4 MG/ML VIAL SLOW IVP PRN (01:25)
[2017-10-15] MEDS ORDERED: Morphine 10 MG/ML VIAL SLOW IVP PRN (01:25)
[2017-10-15] MEDS: Potassium Chloride 20 MEQ in Premix Bag 1 BAG IVPB SCH (02:23)
[2017-10-15] MEDS: Piperacillin/Tazobactam 3.375 GM in Sodium Chloride 0.9% 100 ML IVPB SCH ×4 (05:07→20:13)
[2017-10-15] MEDS: Lactated Ringer's 1,000 ML IV SCH (05:29)
[2017-10-15] MEDS: Gabapentin 300 MG CAP PO SCH ×3 (09:37→20:10)
[2017-10-15] MEDS: Senokot 8.6 MG TAB PO SCH ×2 (09:37→20:12)
[2017-10-15] MEDS: Polyethylene Glycol 3350 17 GM Packet PO SCH (09:37)
[2017-10-15] MEDS: Amlodipine 10 MG TAB PO SCH (09:37)
[2017-10-15] MEDS: oxyCODONE ER 20 MG TAB PO SCH ×2 (09:38→20:11)
[2017-10-15] MEDS: DULoxetine 60 MG CAP PO SCH (09:38)
[2017-10-15] MEDS: Magnesium Oxide 400 MG TAB PO SCH (09:39)
[2017-10-15] MEDS: Potassium Chloride 20 MEQ TAB PO SCH (09:39)
[2017-10-15] MEDS: Folic Acid 1 MG TAB PO SCH (09:39)
[2017-10-15] MEDS: Benzonatate 100 MG CAP PO SCH ×3 (09:46→20:10)
[2017-10-15] MEDS: Hyoscyamine Sulfate SL 0.125 mg Tablet PO SCH ×3 (10:13→20:11)
[2017-10-15] MEDS: Dronabinol 2.5 MG CAP PO SCH (11:05)
--- NOTE | 2017-10-15 11:16 | PDOC.FM ---
- Subjective Subjective: Patient doing poorly this AM. She still endorses significant pain throughout her whole body. It is not improved since yesterday. She will barely speak any words. She becomes very emotional when discussing her ability to care for herself. She adamantly declines SNF, IP rehab, or other facility. She states her lease is up in December and her son is coming to get her to live with him at that time. - Objective MAR Reviewed: Yes Vital Signs & Weight: Vital Signs (12 hours) Temp Pulse Resp BP BP Pulse Ox 10/15/17 09:37 80 131/83 10/15/17 07:58 98.4 F 80 18 131/83 10/15/17 04:00 98.2 F 84 16 117/71 92 L Weight Weight 48.081 kg I&O: 10/14/17 10/15/17 10/16/17 06:59 06:59 06:59 Intake Total 900 Output Total 1400 Balance -500 Result Diagrams: 10/14/17 14:15 10/14/17 14:15 EKG Reviewed by me: No Radiology Reviewed by me: Yes <Maria Fernanda Vieyra - Last Filed: 10/15/17 11:34> - Objective Vital Signs & Weight: Vital Signs (12 hours) Temp Pulse Resp BP Pulse Ox 10/18/17 07:20 97.7 F 79 16 137/86 96 Weight Admit Weight 48.081 kg Weight 52.571 kg I&O: 10/17/17 10/18/17 10/19/17 06:59 06:59 06:59 Intake Total 500 Output Total 650 1300 Balance -150 -1300 Result Diagrams: 10/15/17 12:22 10/15/17 12:22 <Alysha Freeman - Last Filed: 10/18/17 10:20> Phys Exam - Physical Examination Constitutional: NAD HEENT: moist MMs, sclera anicteric Neck: supple Respiratory: no wheezing, clear to auscultation bilateral Cardiovascular: RRR Gastrointestinal: soft Diffusely tender throughout 1+ edema of left lower extremity, Right leg amputation Tender to palpation throughout whole body with minimal palpation Neurological: non-focal Deviation from normal: Depressed affect Skin: no rash, cap refill <2 seconds <Maria Fernanda Vieyra - Last Filed: 08/31/18 11:34> Dx/Plan (1) Intractable pain Code(s): R52 - PAIN, UNSPECIFIED Status: Acute (2) Abdominal pain of multiple sites Code(s): R10.9 - UNSPECIFIED ABDOMINAL PAIN Status: Acute (3) Hypokalemia Code(s): E87.6 - HYPOKALEMIA Status: Acute (4) Anxiety and depression Code(s): F41.9 - ANXIETY DISORDER, UNSPECIFIED; F32.9 - MAJOR DEPRESSIVE DISORDER, SINGLE EPISODE, UNSPECIFIED Status: Chronic (5) Diabetes type 2, controlled Code(s): E11.9 - TYPE 2 DIABETES MELLITUS WITHOUT COMPLICATIONS Status: Chronic (6) H/O malignant neoplasm of vulva Code(s): Z85.44 - PERSONAL HISTORY OF MALIG NEOPLASM OF FEMALE GENITAL ORGANS Status: Chronic (7) Hypertension Code(s): I10 - ESSENTIAL (PRIMARY) HYPERTENSION Status: Chronic (8) Opioid dependence Code(s): F11.20 - OPIOID DEPENDENCE, UNCOMPLICATED Status: Chronic - Plan Plan: 56 year old female with history of vulvar cancer presents with N/V and diffuse pain 1. SIRS - Possible UTI - Tachycardic with reported fever - Lactic acidosis downtrending - BCx pending - Continue Zosyn until blood cultures result - Gentle fluids @ 75 mL/hr - UCx not feasible due to combined ileostomy/urostomy - Pt afebrile and asymptomatic in regards to infection this AM 2. Intractable nausea - Continue home zofran, promethazine, dronabinol - LR @ 75 mL/hr - Will advance diet as tolerated 3. Vulvar Cancer - Continue home pain medication regimen with additional for breakthrough; verify regimen with Dr. Charles, patient's oncologist - Palliative care consultation 4. Chronic Pain - Home pain medications - Recommend scheduled dosing as opposed to PRN if patient is taking consistently - Long acting morphine not indicated for breakthrough pain - Alkaline Phosphatase and Calcium mildly elevated; question of whether there is mets to bone from vulvar cancer. Questionable mass also noted in pelvic reason. Possible TV US to further evaluate. Possible bone scan to evaluate for bone involvement. 5. Depression - Home medication; patient was switched to mirtazipine at last visit but has not been taking - Discussion with palliative care for goals of care 6. HTN - Home amlodipine - PRN medications 7. Hypokalemia - s/p repletion in ED - Monitor and replete as indicated Dispo: Stable with poor prognosis. Pt would benefit from SNF or NH, but refuses. Continue pain management control. Possible transfer to oncology. Anticipate LOS >48 hours. <Maria Fernanda Vieyra - Last Filed: 10/15/17 11:34> Attending Addendum - Attending Addendum Date/Time: 10/18/17 1009 I personally evaluated the patient and discussed the management with Dr. Vieyra on 10/15/17 I agree with the History, Examination, Assessment and Plan documented above with any addition or exceptions noted below- Patient admitted for pain and N/V. Has been able to tolerate sips of clears this morning. Requiring morphine IV for breakthrough pain. Afebrile VSS. A/P: 1) H/o vulvar cancer - will obtain records form oncologist; continue current pain meds and verify home meds. 2) N/V - continue to encourage po as tolerated. Continue antiemetics. 3) Hypokalemia- replace potassium. <Alysha Freeman - Last Filed: 10/18/17 10:20>
[2017-10-15] MEDS ORDERED: Piperacillin/Tazobactam 3.375 GM in Sodium Chloride 0.9% 100 ML IVPB SCH (11:25)
[2017-10-15] MEDS ORDERED: hydrALAZINE 20 MG/ML VIAL SLOW IVP PRN (11:40)
[2017-10-15 13:05] LABS: #Basophils 0.1 thou/uL (0.0-0.2); #Eosinphils 0.1 thou/uL (0.0-0.7); #Lymphocytes 1.5 thou/uL (1.20-3.40); #Monocytes 0.5 thou/uL (0.11-0.59); #Neutrophils 4.3 thou/uL (1.40-6.50); %Eosinophils 1.1 % (0.0-10.0); %Lymphocytes 23.4 % (21.0-51.0); %Monocytes 8.2 % (0.0-10.0); %Neutrophils 66.2 % (42.0-75.0); ALT (SGPT) Less than 7 U/L (8-55); AST (SGOT) 9 U/L (5-34); Albumin 3.9 g/dL (3.5-5.0); Alkaline Phosphatase 136 U/L (40-150); Anion Gap 13 mmol/L (10-20); BUN (Urea Nitrogen) 8 mg/dL (9.8-20.1); Bilirubin, Total 0.4 mg/dL (0.2-1.2); Calc. Creatinine Clearance 79 mL/min (70-130); Calcium 9.8 mg/dL (7.8-10.44); Carbon Dioxide 20 mmol/L (22-29); Chloride 110 mmol/L (98-107); Estimated GFR-MDRD Greater than 90; Glucose 106 mg/dL (70-105); Mean Corpuscular HGB CONC 31.6 g/dL (32.0-36.0); Mean Corpuscular Hemoglobin 24.1 pg (27.0-31.0); Mean Corpuscular Volume 76.3 fL (78.0-98.0); Mean Platelet Volume 10.7 fL (7.4-10.4); Platelet Count 228 thou/uL (130-400); Potassium 3.8 mmol/L (3.5-5.1); Protein, Total 7.9 g/dL (6.0-8.3); RBC Distribution Width 20.5 % (11.5-14.5); Red Blood Cell (RBC) Count 4.56 mill/uL (4.20-5.40); Sodium 139 mmol/L (136-145); White Blood Cell (WBC) Count 6.5 thou/uL (4.8-10.8)
[2017-10-15] MEDS ORDERED: Melatonin 3 MG TAB PO PRN (18:30)
[2017-10-15] MEDS ORDERED: Promethazine 25 MG TAB PO PRN (18:34)
[2017-10-15] MEDS ORDERED: Ondansetron ODT 4 MG TAB PO PRN (18:35)
[2017-10-15] MEDS ORDERED: Ondansetron HCl/PF 4 MG/2 ML Vial IVP PRN (18:35)
[2017-10-15] MEDS: busPIRone HCl 10 MG TAB PO PRN (22:20)
[2017-10-16] MEDS: Morphine ER 15 MG TAB PO PRN (00:59)
[2017-10-16] MEDS: Piperacillin/Tazobactam 3.375 GM in Sodium Chloride 0.9% 100 ML IVPB SCH ×4 (03:02→21:20)
--- NOTE | 2017-10-16 07:07 | PDOC.FM ---
- Subjective Subjective: Patient doing well this AM. She is much improved from yesterday. Her pain is improved. She states that yesterday was a bad day. She was having a headache and abdominal cramping which are better today. She denies diarrhea, fever, chills, chest pain, or shortness of breath. - Objective MAR Reviewed: Yes Vital Signs & Weight: Vital Signs (12 hours) Temp Pulse Resp BP Pulse Ox 10/16/17 04:00 98.4 F 80 20 112/59 L 95 10/15/17 19:15 97.7 F 109 H 16 170/102 H 97 Weight Admit Weight 48.081 kg Weight 48.081 kg I&O: 10/15/17 10/16/17 10/17/17 06:59 06:59 06:59 Intake Total 900 1618 Output Total 1400 2350 Balance -500 -385 Result Diagrams: 10/15/17 12:22 10/15/17 12:22 EKG Reviewed by me: Yes Radiology Reviewed by me: Yes <Maria Fernanda Vieyra - Last Filed: 10/16/17 12:58> - Objective Vital Signs & Weight: Vital Signs (12 hours) Temp Pulse Resp BP Pulse Ox 10/16/17 19:52 99.1 F 79 12 127/89 96 10/16/17 16:47 98.9 F 72 16 113/74 95 10/16/17 11:38 99.1 F 77 14 119/75 94 L Weight Admit Weight 48.081 kg Weight 48.081 kg I&O: 10/15/17 10/16/17 10/17/17 06:59 06:59 06:59 Intake Total 900 1618 500 Output Total 1400 2350 350 Balance -500 -939 150 Result Diagrams: 10/15/17 12:22 10/15/17 12:22 <Harmony Cueva - Last Filed: 10/16/17 21:04> Phys Exam - Physical Examination Constitutional: NAD HEENT: moist MMs, sclera anicteric Neck: supple Respiratory: no wheezing, clear to auscultation bilateral Cardiovascular: RRR Gastrointestinal: soft, non-tender, no distention, positive bowel sounds Musculoskeletal: pulses present 1+ pitting edema of left lower extremity Midly tender to palpation throughout entire body Neurological: non-focal Psychiatric: normal affect, A&O x 3 Deviation from normal: In good spirits this AM <Maria Fernanda Vieyra - Last Filed: 10/16/17 12:58> Dx/Plan (1) Intractable pain Code(s): R52 - PAIN, UNSPECIFIED Status: Acute (2) Abdominal pain of multiple sites Code(s): R10.9 - UNSPECIFIED ABDOMINAL PAIN Status: Acute (3) Hypokalemia Code(s): E87.6 - HYPOKALEMIA Status: Acute (4) Anxiety and depression Code(s): F41.9 - ANXIETY DISORDER, UNSPECIFIED; F32.9 - MAJOR DEPRESSIVE DISORDER, SINGLE EPISODE, UNSPECIFIED Status: Chronic (5) Diabetes type 2, controlled Code(s): E11.9 - TYPE 2 DIABETES MELLITUS WITHOUT COMPLICATIONS Status: Chronic (6) H/O malignant neoplasm of vulva Code(s): Z85.44 - PERSONAL HISTORY OF MALIG NEOPLASM OF FEMALE GENITAL ORGANS Status: Chronic (7) Hypertension Code(s): I10 - ESSENTIAL (PRIMARY) HYPERTENSION Status: Chronic (8) Opioid dependence Code(s): F11.20 - OPIOID DEPENDENCE, UNCOMPLICATED Status: Chronic - Plan Plan: 56 year old female with history of vulvar cancer presents with N/V and diffuse pain 1. SIRS - Possible UTI; cannot collect urine - Tachycardic with reported fever; resolved - BCx pending; NGTD - Continue Zosyn until blood cultures result --> de-escalate with negative cultures - Gentle fluids @ 75 mL/hr - UCx not feasible due to combined ileostomy/urostomy - Pt afebrile and asymptomatic 2. Intractable nausea - Continue home zofran, promethazine, dronabinol - LR @ 75 mL/hr - Will advance diet as tolerated - Consider mirtazapine for depression and appetite 3. Vulvar Cancer - Continue home pain medication regimen with additional for breakthrough; verify regimen with Dr. Charles, patient's oncologist - Palliative care consultation 4. Chronic Pain - Home pain medications; will increase dose she is receiving in hospital to reflect what she receives at home - Long acting morphine not indicated for breakthrough pain - Alkaline Phosphatase and Calcium mildly elevated; question of whether there is mets to bone from vulvar cancer. Questionable mass also noted in pelvic reason. Possible TV US to further evaluate. Possible bone scan to evaluate for bone involvement. Pending documents from cancer specialist. 5. Depression - Home medication; patient was switched to mirtazipine at last visit but has not been taking, consider restarting - Discussion with palliative care for goals of care 6. HTN - Home amlodipine - PRN medications 7. Hypokalemia - s/p repletion in ED - Monitor and replete as indicated Dispo: Stable with poor prognosis. Pt would benefit from SNF or NH, but refuses. Continue pain management control; will increase dose of meds to reflect what she is taking at home. Transfer to oncology. <Maria Fernanda Vieyra - Last Filed: 10/16/17 12:58> Attending Addendum - Attending Addendum Date/Time: 10/16/172101 I personally evaluated the patient at 1145 am and discussed the management with Dr. Vieyra. I agree with the History, Examination, Assessment and Plan documented above with any addition or exceptions noted below. Looks much improved today. Will increase pain meds to match home doses. Transfer to onc as no longer needs tele. <Harmony Cueva - Last Filed: 10/16/17 21:04>
[2017-10-16] MEDS: Potassium Chloride 20 MEQ TAB PO SCH (07:59)
[2017-10-16] MEDS: Magnesium Oxide 400 MG TAB PO SCH (07:59)
[2017-10-16] MEDS: Senokot 8.6 MG TAB PO SCH ×2 (08:00→21:16)
[2017-10-16] MEDS: DULoxetine 60 MG CAP PO SCH (08:00)
[2017-10-16] MEDS: oxyCODONE ER 20 MG TAB PO SCH ×2 (08:00→21:17)
[2017-10-16] MEDS: Gabapentin 300 MG CAP PO SCH ×3 (08:00→21:16)
[2017-10-16] MEDS: Folic Acid 1 MG TAB PO SCH (08:03)
[2017-10-16] MEDS: Polyethylene Glycol 3350 17 GM Packet PO SCH (08:03)
[2017-10-16] MEDS: Amlodipine 10 MG TAB PO SCH (08:03)
[2017-10-16] MEDS: Dronabinol 2.5 MG CAP PO SCH (08:27)
[2017-10-16] MEDS: Benzonatate 100 MG CAP PO SCH ×3 (08:27→21:16)
[2017-10-16] MEDS: Hyoscyamine Sulfate SL 0.125 mg Tablet PO SCH ×3 (08:29→21:00)
[2017-10-16] MEDS: Nystatin Powder 15 GM BOT TOP PRN ×3 (16:45→21:57)
[2017-10-16] MEDS: Nystatin Cream 30 GM TUBE TOP SCH ×2 (16:46→21:00)
--- NOTE | 2017-10-16 20:22 | EKG ---
Test Reason : ERINDICATION Blood Pressure : / mmHG Vent. Rate : 104 BPM Atrial Rate : 104 BPM P-R Int : 180 ms QRS Dur : 112 ms QT Int : 364 ms P-R-T Axes : 071 051 049 degrees QTc Int : 478 ms Sinus tachycardia with frequent Premature ventricular complexes Biatrial enlargement Abnormal ECG Confirmed by ANA MARIA Montoya, CARLENE ([id number]), desk editor SEBASTIAN RANDOLPH ([id number]) on 10/16/2017 8:21:52 PM Referred By: Confirmed By:CARLENE RODGERS M.D.
--- NOTE | 2017-10-16 21:51 | PDOC.EVN ---
Event Note - Event Note Event Note: JENNIFER DOMINGUEZ called at approximately 12:15 on 10/15/2017. Patient reportedly had a syncopal episode while getting blood drawn. She became unresponsive per nursing staff. Upon arrival, patient was awake and responsive to pain. She initially would not answer questions, but when asked if she was in pain, she got tearful and whispered yes. There was never any seizure-like activity. Her respiratory rate and effort were not depressed. Patient had tearful and flat affect that day prior to code situation. There was no indication of opiate toxicity based on exam. A CBC, CMP, and prolactin level were drawn. Patient became more alert and responsive after everyone left the room. Nurse reported she appeared to be doing much better. Likely, patient had vasovagal episode 2/2 blood draw. She was also admitted for pain crisis and was in a significant amount of pain throughout the code. Efforts were made to get her pain under control. Maria Fernanda Vieyra, DO PGY-2
[2017-10-17] MEDS: Piperacillin/Tazobactam 3.375 GM in Sodium Chloride 0.9% 100 ML IVPB SCH ×2 (03:50→18:44)
--- NOTE | 2017-10-17 06:53 | PDOC.FM ---
- Subjective Subjective: Patient stated that her pain was improved this AM. However, now she is endorsing diarrhea x4 today. She states she has been having diarrhea since having gabapentin dose increased. She denies any blood or mucus in stool as far as she can tell. She does endorse a foul smelling odor. Patient is agreeable to d/c'ing IV pain medication and attempting to get completely back on home medication PO in order to work towards getting home. She still does not want SNF or any other inpatient placement. - Objective MAR Reviewed: Yes Vital Signs & Weight: Vital Signs (12 hours) Temp Pulse Resp BP Pulse Ox 10/17/17 04:00 98.2 F 62 16 118/67 96 10/16/17 23:31 99.2 F 75 16 118/80 97 10/16/17 20:00 99.2 F 75 16 97 10/16/17 19:52 99.1 F 79 12 127/89 96 Weight Admit Weight 48.081 kg Weight 48.081 kg I&O: 10/15/17 10/16/17 10/17/17 06:59 06:59 06:59 Intake Total 900 1618 500 Output Total 1400 2350 650 Balance -500 -732 -150 Result Diagrams: 10/15/17 12:22 10/15/17 12:22 EKG Reviewed by me: No Radiology Reviewed by me: No <Maria Fernanda Vieyra - Last Filed: 10/17/17 12:02> - Objective Vital Signs & Weight: Vital Signs (12 hours) Temp Pulse Resp BP Pulse Ox 10/17/17 09:03 62 10/17/17 08:00 98.2 F 79 16 134/80 99 10/17/17 04:00 98.2 F 62 16 118/67 96 Weight Admit Weight 48.081 kg Weight 48.081 kg I&O: 10/16/17 10/17/17 10/18/17 06:59 06:59 06:59 Intake Total 1618 500 Output Total 2350 650 Balance -732 -150 Result Diagrams: 10/15/17 12:22 10/15/17 12:22 <Harmony Cueva - Last Filed: 10/17/17 12:31> Phys Exam - Physical Examination Constitutional: NAD HEENT: moist MMs, sclera anicteric Neck: supple Respiratory: clear to auscultation bilateral Cardiovascular: RRR, no significant murmur Gastrointestinal: soft, positive bowel sounds Mildly tender throughout Musculoskeletal: pulses present Trace edema left LE. RLE absent. Neurological: non-focal, moves all 4 limbs Psychiatric: normal affect, A&O x 3 Skin: no rash, cap refill <2 seconds <Maria Fernanda Vieyra - Last Filed: 10/17/17 12:02> Dx/Plan (1) Intractable pain Code(s): R52 - PAIN, UNSPECIFIED Status: Acute (2) Abdominal pain of multiple sites Code(s): R10.9 - UNSPECIFIED ABDOMINAL PAIN Status: Resolved (3) Hypokalemia Code(s): E87.6 - HYPOKALEMIA Status: Resolved (4) Anxiety and depression Code(s): F41.9 - ANXIETY DISORDER, UNSPECIFIED; F32.9 - MAJOR DEPRESSIVE DISORDER, SINGLE EPISODE, UNSPECIFIED Status: Chronic (5) Diabetes type 2, controlled Code(s): E11.9 - TYPE 2 DIABETES MELLITUS WITHOUT COMPLICATIONS Status: Chronic (6) H/O malignant neoplasm of vulva Code(s): Z85.44 - PERSONAL HISTORY OF MALIG NEOPLASM OF FEMALE GENITAL ORGANS Status: Chronic (7) Hypertension Code(s): I10 - ESSENTIAL (PRIMARY) HYPERTENSION Status: Chronic (8) Opioid dependence Code(s): F11.20 - OPIOID DEPENDENCE, UNCOMPLICATED Status: Chronic - Plan Plan: 56 year old female with history of vulvar cancer presents with N/V and diffuse pain Pain Crisis - Pt started on chronic pain medications which include MS Contin and Oxycodone. She was also given morphine for breakthrough pain - Pt was on lower dose of Oxycodone than home dose, so that was increased to reflect home dose of medication yesterday - Pt has required 20 mg of Morphine Sulfate over last 24 hours - Continue to optimize pain control with medications pt can take at home 1. SIRS - Possible UTI; cannot collect urine - Tachycardic with reported fever; resolved - BCx pending; Presumptive Corneybacterium in 1/2 cultures, likely contaminant - D/C Zosyn at 16:00 today. Likely pt had pain crisis rather than infection - Gentle fluids @ 75 mL/hr until pt tolerating PO; changed to regular diet yesterday to encourage pt to eat - UCx not feasible due to combined ileostomy/urostomy - Pt afebrile and asymptomatic in last 24 hours 2. Intractable nausea, improved - Continue home zofran, promethazine, dronabinol - LR @ 75 mL/hr until tolerating PO - Encourage PO intake - Consider mirtazapine for depression and appetite 3. Vulvar Cancer - Continue home pain medication regimen with additional for breakthrough - Optimize pain regimen - Palliative care consultation regarding goals of care - Awaiting records from Dr. Charles's office to verify extent of disease 4. Chronic Pain - Home pain medications as above - Alkaline Phosphatase and Calcium mildly elevated; question of whether there is mets to bone from vulvar cancer. Questionable mass also noted in pelvic reason. Possible TV US to further evaluate. Possible bone scan to evaluate for bone involvement. Pending documents from cancer specialist. 5. Depression - Home medications; patient was switched to mirtazipine at last visit but has not been taking, consider restarting - Discussion with palliative care for goals of care 6. HTN - Home amlodipine - PRN medications; pt did not require yesterday 7. Hypokalemia, resolved - s/p repletion in ED - Monitor and replete as indicated 8. Diarrhea - C. difficile studies pending - May be medication related; consider decreasing dose of gabapentin if stool studies negative Dispo: Stable with poor prognosis. Pt would benefit from SNF or NH, but refuses. Continue pain management as above. Will talk to patient again today regarding goals of care. Will attempt to get pt on regimen she can continue taking at home. Possible d/c home today pending stool studies and pain control. <Maria Fernanda Vieyra - Last Filed: 10/17/17 12:02> Attending Addendum - Attending Addendum Date/Time: 10/17/17 1230 I personally evaluated the patient at 1045 and discussed the management with Dr. Vieyra I agree with the History, Examination, Assessment and Plan documented above with any addition or exceptions noted below. Pain crisis- improved now. Will dc IV pain meds and ensure will be stable on oral meds. Diarrhea-will need stool studies to ensure no infectious cause. Expect d/c in next few days. <Harmony Cueva - Last Filed: 10/17/17 12:31>
[2017-10-17] MEDS: Morphine ER 15 MG TAB PO PRN ×2 (08:58→15:27)
[2017-10-17] MEDS: Gabapentin 300 MG CAP PO SCH ×3 (09:00→20:33)
[2017-10-17] MEDS: oxyCODONE ER 20 MG TAB PO SCH ×2 (09:00→20:33)
[2017-10-17] MEDS: DULoxetine 60 MG CAP PO SCH (09:02)
[2017-10-17] MEDS: Magnesium Oxide 400 MG TAB PO SCH (09:03)
[2017-10-17] MEDS: Hyoscyamine Sulfate SL 0.125 mg Tablet PO SCH ×3 (09:03→20:32)
[2017-10-17] MEDS: Amlodipine 10 MG TAB PO SCH (09:03)
[2017-10-17] MEDS: Folic Acid 1 MG TAB PO SCH (09:03)
[2017-10-17] MEDS: Potassium Chloride 20 MEQ TAB PO SCH (09:04)
[2017-10-17] MEDS: Nystatin Cream 30 GM TUBE TOP SCH ×4 (09:06→20:36)
[2017-10-17] MEDS: Nystatin Powder 15 GM BOT TOP PRN ×2 (09:07→20:34)
[2017-10-17] MEDS: Polyethylene Glycol 3350 17 GM Packet PO SCH (09:09)
[2017-10-17] MEDS: Senokot 8.6 MG TAB PO SCH ×2 (09:09→20:32)
[2017-10-17] MEDS: Benzonatate 100 MG CAP PO SCH ×3 (09:48→20:32)
[2017-10-17] MEDS: Dronabinol 2.5 MG CAP PO SCH (09:48)
[2017-10-17] MEDS: Baclofen 10 MG TAB PO PRN (15:21)
[2017-10-17 17:12] VITALS: BMI 19.8
[2017-10-17] MEDS: busPIRone HCl 10 MG TAB PO SCH ×2 (18:58→21:51)
[2017-10-17] MEDS: Baclofen 10 MG TAB PO SCH ×2 (18:58→21:52)
[2017-10-17] MEDS ORDERED: busPIRone HCl 10 MG TAB PO SCH (21:00)
[2017-10-17] MEDS ORDERED: Baclofen 10 MG TAB PO SCH (21:00)
[2017-10-18] MEDS: Morphine ER 15 MG TAB PO PRN (07:10)
[2017-10-18 08:12] VITALS: BP 137/86; TEMP 97.7
[2017-10-18] MEDS: Benzonatate 100 MG CAP PO SCH (08:54)
[2017-10-18] MEDS: DULoxetine 60 MG CAP PO SCH (08:55)
[2017-10-18] MEDS: Gabapentin 300 MG CAP PO SCH (08:55)
[2017-10-18] MEDS: oxyCODONE ER 20 MG TAB PO SCH (08:55)
[2017-10-18] MEDS: Senokot 8.6 MG TAB PO SCH (08:58)
[2017-10-18] MEDS: Hyoscyamine Sulfate SL 0.125 mg Tablet PO SCH (08:58)
[2017-10-18] MEDS: Nystatin Cream 30 GM TUBE TOP SCH (08:58)
[2017-10-18] MEDS: Potassium Chloride 20 MEQ TAB PO SCH (08:58)
[2017-10-18] MEDS: Magnesium Oxide 400 MG TAB PO SCH (08:58)
[2017-10-18] MEDS: Folic Acid 1 MG TAB PO SCH (08:58)
[2017-10-18] MEDS: Amlodipine 10 MG TAB PO SCH (08:58)
[2017-10-18] MEDS: Polyethylene Glycol 3350 17 GM Packet PO SCH (09:00)
--- NOTE | 2017-10-18 09:20 | PDOC.FM ---
- Subjective Subjective: No significant overnight events. Patient states she is in pain this morning. She has yet to receive her gabapentin. Her diarrhea stopped yesterday. They were unable to collect stool studies since the diarrhea had resolved. Patient is back on her home pain medications. She did great all of yesterday. Discussed going home today. Patient still not agreeable to inpatient services. She did state she would potentially like services. - Objective MAR Reviewed: Yes Vital Signs & Weight: Vital Signs (12 hours) Temp Pulse Resp BP Pulse Ox 10/18/17 07:20 97.7 F 79 16 137/86 96 Weight Admit Weight 48.081 kg Weight 52.571 kg I&O: 10/17/17 10/18/17 10/19/17 06:59 06:59 06:59 Intake Total 500 Output Total 650 1300 Balance -150 -1300 Result Diagrams: 10/15/17 12:22 10/15/17 12:22 EKG Reviewed by me: No Radiology Reviewed by me: Yes <Maria Fernanda Vieyra - Last Filed: 10/18/17 12:32> - Objective Vital Signs & Weight: Vital Signs (12 hours) Temp Pulse Resp BP Pulse Ox 10/18/17 09:12 97.7 F 79 16 96 10/18/17 07:20 97.7 F 79 16 137/86 96 Weight Admit Weight 48.081 kg Weight 52.571 kg I&O: 10/17/17 10/18/17 10/19/17 06:59 06:59 06:59 Intake Total 500 Output Total 650 1300 Balance -150 -1300 Result Diagrams: 10/15/17 12:22 10/15/17 12:22 <Real Leslie - Last Filed: 10/18/17 13:11> Phys Exam - Physical Examination Constitutional: NAD HEENT: moist MMs, sclera anicteric Neck: supple Respiratory: no wheezing, clear to auscultation bilateral Cardiovascular: RRR, no significant murmur Gastrointestinal: soft, positive bowel sounds (hyperactive) Diffusely tender througout, ileostomy in place LLQ Musculoskeletal: no edema, pulses present Neurological: non-focal Psychiatric: normal affect, A&O x 3 Skin: no rash, cap refill <2 seconds <Maria Fernanda Vieyra - Last Filed: 10/18/17 12:32> Dx/Plan (1) Intractable pain Code(s): R52 - PAIN, UNSPECIFIED Status: Acute (2) Abdominal pain of multiple sites Code(s): R10.9 - UNSPECIFIED ABDOMINAL PAIN Status: Resolved (3) Hypokalemia Code(s): E87.6 - HYPOKALEMIA Status: Resolved (4) Anxiety and depression Code(s): F41.9 - ANXIETY DISORDER, UNSPECIFIED; F32.9 - MAJOR DEPRESSIVE DISORDER, SINGLE EPISODE, UNSPECIFIED Status: Chronic (5) Diabetes type 2, controlled Code(s): E11.9 - TYPE 2 DIABETES MELLITUS WITHOUT COMPLICATIONS Status: Chronic (6) H/O malignant neoplasm of vulva Code(s): Z85.44 - PERSONAL HISTORY OF MALIG NEOPLASM OF FEMALE GENITAL ORGANS Status: Chronic (7) Hypertension Code(s): I10 - ESSENTIAL (PRIMARY) HYPERTENSION Status: Chronic (8) Opioid dependence Code(s): F11.20 - OPIOID DEPENDENCE, UNCOMPLICATED Status: Chronic - Plan Plan: 56 year old female with history of vulvar cancer presents with N/V and diffuse pain Pain Crisis - Pt started on chronic pain medications which include MS Contin and Oxycodone. She was also given morphine for breakthrough pain; the IV medications were stopped yesterday morning - Pt was on lower dose of Oxycodone than home dose, so that was increased to reflect home dose of medication yesterday - LACY gabapentin and baclofen SIRS - Possible UTI; cannot collect urine - Tachycardic with reported fever; resolved - BCx presumptive Corneybacterium in 1/2 cultures, likely contaminant - s/p Zosyn x3 days - D/c fluids - UCx not feasible due to combined ileostomy/urostomy - Pt afebrile and asymptomatic in last 24 hours Intractable nausea, improved - Continue home zofran, promethazine, dronabinol - Encourage PO intake - Doing better this AM Vulvar Cancer - Continue home pain medication regimen - Optimize pain regimen - Palliative care consultation regarding goals of care - Awaiting records from Dr. Charles's office to verify extent of disease Chronic Pain - Home pain medications as above - Alkaline Phosphatase and Calcium mildly elevated; question of whether there is mets to bone from vulvar cancer. Questionable mass also noted in pelvic reason. Possible TV US to further evaluate. Possible bone scan to evaluate for bone involvement. Pending documents from cancer specialist. Patient will need to follow Depression - Home medications - Discussion with palliative care for goals of care HTN - Home amlodipine - PRN medications; pt did not require yesterday Hypokalemia, resolved - s/p repletion in ED - Monitor and replete as indicated Diarrhea, resolved - C. difficile studies not able to be performed, no need to do this at this time - May be medication related; consider decreasing dose of gabapentin if stool studies negative. Discussed optimal pain control vs. having diarrhea. Dispo: Stable with poor prognosis. Pt would benefit from SNF or NH, but refuses. Continue pain management as above. Will consult CM for HH services. Possible d/c home today. <Maria Fernanda Vieyra - Last Filed: 10/18/17 12:32> Attending Addendum - Attending Addendum Date/Time: 10/18/17 3318 I personally evaluated the patient and discussed the management with Dr. Vieyra. I agree with and repeated the History, Examination, Assessment and Plan documented above with any addition or exceptions noted below. Pt doing quite well today and desires to go home. We emphasized today her need to follow up with her physicians. She recently had a + mammo bilaterlly and is due for a biopsy. She also has some findings on CT scan which I believe can be worked up with her PCP or oncologist on an outpatient basis and she has follow up in about a week scheduled. She does not have symptomatic nephrolithiasis. Her hydronephrosis I believe is stable and her creatinine stable as well. She has no indication for antimicrobials at this time. <Real Leslie - Last Filed: 10/18/17 13:11>
[2017-10-18] MEDS: Dronabinol 2.5 MG CAP PO SCH (10:20)
[2017-10-18] MEDS: Baclofen 10 MG TAB PO SCH (10:20)
[2017-10-18] MEDS: busPIRone HCl 10 MG TAB PO SCH (10:21)
--- NOTE | 2017-10-20 11:16 | DIS-2 ---
DATE OF ADMISSION: 10/14/2017 DATE OF DISCHARGE: 10/18/2017 ADMITTING ATTENDING: Dr. Dorian Clark. DISCHARGE ATTENDING: Dr. Real Leslie. RESIDENT: Dr. Maria Fernanda Vieyra. CONSULTATIONS: None. PROCEDURES: Abdomen/pelvis CT showed moderate left and mild right hydronephrosis. The urinary bladd er was completely decompressed and not evaluated on the exam. A left UVJ calculus was seen on the pr ior study on 05/27/2016. Calcification is in the region not definitively visualized on current exam. There were multiple calcifications in the pelvis some of which were related to volvulus with some o f which are related to calcified uterine fibroids. Additionally, postsurgical changes of loops of danielle wel in the right mid abdomen and right lower quadrant were seen with evidence of an ostomy in the rig ht lower quadrant. There is dilation of the common duct and pancreatic duct of uncertain etiology. There was no obvious pancreatic mass, which could be delineated on exam. There was a lobulated uteru s with increased density masses related to multiple uterine fibroids. There was a mass-like structur e in the lower pelvis measuring 3.3 cm, which was mixed and hemorrhagic adnexal lesion is a possibili ty. There is a lobulated appearance of the soft tissues, the skin thickening involving the vulvar re gion of proximal right thigh. 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 There is also chronic osseous changes in the pelvis of bilateral nephrolithiasis. PRIMARY DIAGNOSES: 1. Intractable pain, pain crisis. 2. Abdominal pain of multiple sites. 3. Hypokalemia, resolved. SECONDARY DIAGNOSES: 1. History of vulvar cancer, status post radiation therapy. 2. Anxiety and depression. 3. Diabetes mellitus type 2, controlled. 4. Hypertension. 5. Opioid dependence. DISCHARGE MEDICATIONS: 1. Amlodipine 10 mg p.o. q.a.m. 2. Baclofen 10 mg p.o. q.i.d. p.r.n. 3. Benzonatate 100 mg p.o. t.i.d. 4. Buspirone 15 mg p.o. q.i.d. 5. Duloxetine 120 mg p.o. daily. 6. Folic acid 1 tablet p.o. daily. 7. Gabapentin 600 mg p.o. t.i.d. 8. Hyoscyamine sulfate 0.25 mg p.o. t.i.d. 9. Morphine ER (MS Contin) 15 mg p.o. q.6 hours p.r.n. 10. Oxycodone hydrochloride 20 mg. 11. Pantoprazole 40 mg p.o. daily. 12. MiraLax 17 gram packet p.o. daily. 13. Promethazine 25 mg p.o. p.r.n. 14. Sennosides 8.6 mg p.o. b.i.d. 15. Dronabinol 2.5 mg p.o. daily. 16. Magnesium oxide 400 mg p.o. daily. 17. Potassium chloride 40 mEq p.o. q.a.m. with meals. HISTORY OF PRESENT ILLNESS AND HOSPITAL COURSE: This is a 56-year-old -[place] female with a past medical history of vulvar cancer, status post radiation therapy, chronic pain secondary to romulo gnancy, hypertension, OA, anemia presenting with nausea, vomiting, and abdominal pain that started e day prior to admission. The patient states that her head has been throbbing, she just has not felt well. With the following day, she had began having nausea, vomiting, and not been able to tolerate p.o. intake. Patient also reports chills at home and has not checked her temperature. Patient lives at home and previously at home health and assistance from her brother. She reports needing help at home to care for herself. Patient has history of opioid dependence. She was started back on a medication regimen that was pres umed to be her home medication regimen. However, after further questioning, it was determined that t he medication regimen did not match that of her home dose. This was confirmed by calling her oncolog ist at [facility]. After increasing the dose of the medication, patient did do a lot better in regard to her pain tolerance. She did have one episode prior to turning around, where she experience d a syncopal episode. We will get a blood drawn. She was very minimally responsive after the blood draw; however, she was responsive to pain and stimulation that she simply would not talk to any of e providers or staff. Labs were drawn to confirm that there was no serious etiology of the syncopal event, which nothing showed anything concerned at the time. Patient was receiving morphine IV for br eakthrough pain that was discontinued on the day prior to admission and patient continued to do very well, just on her home medication regimen. Of note, patient reports that she is in remission of her vulvar cancer and that there is no metastasis; however, based on CT of the abdomen and pelvis, it see ms as though there might be either metastasis from the vulvar cancer or new primary sites of cancer t hat may not have been previously identified or reported to patient. We tried to obtain records from Dr. Charles's office at [facility], patient's oncologist. However, we were unable to receive those records prior to discharge from hospital. Based on the CT findings, it is recommended that patient c onsider for thorough workup as an outpatient to address her cancer to verify whether or not she has a ny new lesions, particularly lesions that may be contributing to her abdominal pain. The pelvic mass potentially represents a site for malignancy versus another etiology that may be contributing to the pain. The patient did improve drastically since admission. A discussion was had regarding inpatient rehab versus home health verss short-term nursing facility. Patient adamantly denied her short-term nursi ng or inpatient rehabilitation or on several occasions, she was agreeable to Home Health and the home health services were arranged for patient. It was noted that patient was having difficulty taking c are of herself at home. She states that her son that was going to come pick her up to live with him at the end of her lease in December. She states until that time she would like to continue living at home and does not want placement anywhere. Patient did have several episodes of hypokalemia, possibly secondary to the nausea and vomiting that resolved with potassium repletion. Additionally, the patient does have a colostomy, ileostomy, urost jamar connection and she did come in meeting SIRS criteria and was initially started on antibiotics for presumed infection. No source of infection was found and they were unable to collect a urine sample due to the patient's connecting colostomy and urostomy. She was continued on Zosyn for 3 days. It is uncertain whether or not this was necessary. Blood cultures were all negative, but patient did ap pear to improve in regards to her pain. The Zosyn was discontinued prior to [facility]. The patient was not discharged home on any oral antibiotics. DISPOSITION: Guarded. DISCHARGE INSTRUCTIONS: 1. Location: Home with home health. 2. Activity: As tolerated. 3. Diet: Consistent carbohydrates, heart healthy. 4. Followup: Patient is to follow up with her PCP, Dr. Kameron Otero within 7 days of discharge fro the hospital. Additionally, she is to follow with her oncologist, Dr. Aleksey Charles at [facility] to further discuss and her current diagnosis and prognosis, this was discussed with the patient. Tiana ohara was in understanding and agreement with the plan.
== END 2017-10-18 13:53 | disposition home or self-care (01) | DRG 948 ==
LOC: ERS 13:52 → 2NO 16:20 → ONC 10-16 18:36
PROVIDERS: ADMIT Student in an Organized Health Care Education/Training Program; ATTEND Student in an Organized Health Care Education/Training Program
DX: G89.3 Neoplasm related pain (acute) (chronic) (principal); N39.0 Urinary tract infection, site not specified; F11.20 Opioid dependence, uncomplicated; E87.2 Acidosis; C51.9 Malignant neoplasm of vulva, unspecified; F32.9 Major depressive disorder, single episode, unspecified; I10 Essential (primary) hypertension; E87.6 Hypokalemia; F12.10 Cannabis abuse, uncomplicated; F41.9 Anxiety disorder, unspecified; E11.9 Type 2 diabetes mellitus without complications; Z79.899 Other long term (current) drug therapy; R55 Syncope and collapse; Z79.891 Long term (current) use of opiate analgesic; R19.7 Diarrhea, unspecified
CPT/HCPCS: 36415; 36416; 71045; 74176; 80053; 83605; 83690; 84146; 85025; 87040; 93005; 96365; 96366; 96367; 96375; 96376; A4216; J2270; J2405; J2543; J3370; J3480; J7050; Q0162; Q0167

== ENCOUNTER → 2017-10-29 | Day surgery (SDC) | payer MEDICARE | LOC: BICULT 12:41 | PROVIDERS: ATTEND Family Medicine | PROC: 0H9V3ZX Drainage of Bilateral Breast, Percutaneous Approach, Diagnostic (ICD-10-PCS; principal; 2017-10-29) | DX: D24.2 Benign neoplasm of left breast (principal); D24.1 Benign neoplasm of right breast; Z91.041 Radiographic dye allergy status; Z79.899 Other long term (current) drug therapy | CPT/HCPCS: 19083; 77066; 88305 ==

== ENCOUNTER 2018-03-11 15:43 | Outpatient (CLI) | payer MEDICARE ==
--- NOTE | 2018-03-11 16:01 | RAD ---
LEFT WRIST THREE VIEWS: History: Wrist pain. FINDINGS: Marked arthritic changes of the triscaphe joint. Very mild arthritic changes of the first carpal meta carpal joint space seen. No signs of fracture. IMPRESSION: Arthritic changes of the wrist mainly related to the triscaphe joint. POS: DOROTA
== END 2018-03-11 15:44 | disposition home or self-care (01) ==
LOC: RAD 15:43
PROVIDERS: ATTEND Family Medicine
DX: M25.539 Pain in unspecified wrist (principal); M19.032 Primary osteoarthritis, left wrist

== ENCOUNTER 2018-05-25 14:01 | Outpatient (CLI) | payer MEDICARE ==
[2018-05-25] MEDS ORDERED: Sodium Chloride 0.9% 15 ML NEB ONE (19:50)
--- NOTE | 2018-05-25 23:00 | HP ---
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 The patient was referred to the [facility] by Dr. Aleksey Charles on 04/26/2018. The patient's medical history is significant for vulvar carcinoma. The patient states that she underwent treatment for vulvar carcinoma with chemotherapy and radiation therapy. She states that she did not receive surgery as part of her treatment. According to records accompanying the patient today, Ms. Olivera was previously cared for by Dr. Justin Lee at [facility], who had referred her to wound care in [place] years ago. Records accompanying the patient indicate that the lymphangioma circumscriptum is a sequela of her radiation therapy. Presently, the patient is treating the perineal lesions with nystatin powder and nystatin cream. She states that she had been dresses the wounds with 4x4s and ABDs. PAST MEDICAL HISTORY: 1. Vulvar carcinoma, status post chemotherapy and radiation therapy. 2. Anemia. 3. Osteoporosis. 4. Hypertension. 5. Avascular necrosis of bilateral femoral heads. 6. Osteoarthritis. 7. Gastroesophageal reflux disease. PAST SURGICAL HISTORY: 1. Bilateral tubal ligation. 2. Tonsillectomy. 3. Bilateral hip replacements. 4. Left resection arthroplasty. 5. Right hip disarticulation. 6. Urostomy placement. MEDICATIONS: 1. MS Contin. 2. Magnesium oxide. 3. Norvasc. 4. Zyprexa. 5. Vitamin D. 6. Cymbalta. 7. VESIcare. 8. Lasix. 9. Buspirone. 10. Protonix. 11. Senna. 12. Baclofen. 13. Gabapentin. ALLERGIES: NO KNOWN DIAGNOSED ALLERGIES. SOCIAL HISTORY: Social history significant for tobacco use of up to 1/2 pack of cigarettes per day intermittently over 20 years. The patient denies any history of EtOH use. FAMILY HISTORY: Family history significant for diabetes mellitus. The patient states that her mother, father, and granddaughter were all diagnosed with diabetes mellitus. Family history is also significant for coronary artery disease. The patient states that her mother and sister were both diagnosed with coronary artery disease. PHYSICAL EXAMINATION: VITAL SIGNS: Temperature 98.1, pulse 82, respirations 16, blood pressure 119/70. GENERAL: A 57-year-old female lying on table in examination room, in no acute distress. HEENT: Normocephalic, atraumatic. NECK: No nuchal rigidity. CHEST: Clear to auscultation. CV: Regular rate and rhythm. ABDOMEN: Soft. PERINEUM: Lymphangioma circumscriptum encompassing an area measuring 14 x 11.5 cm since present. Moderate serous drainage is associated with the lesions. No erythema of the skin surrounding the lesions is present. No maceration of the skin of the periwound is noted. ASSESSMENT AND PLAN: 1. Lymphangioma circumscriptum. For the time being, the patient is to continue dressing changes with nystatin powder and nystatin cream. Arrangements will be made for the home delivery of dressing supplies, specifically 4x4s and ABDs. The patient will be performing dressing changes on a daily basis after cleansing and irrigation. I will see Ms. Olivera again in 2 weeks. 2. Vulvar carcinoma, status post chemotherapy and radiation therapy. 3. Anemia. 4. Osteoporosis. 5. Hypertension. 6. Avascular necrosis of bilateral femoral heads. 7. Osteoarthritis. 8. Gastroesophageal reflux disease. Job ID: [id number]
== END 2018-05-25 14:02 | disposition home or self-care (01) ==
LOC: WCC 14:01
PROVIDERS: ATTEND Family Medicine
DX: D18.1 Lymphangioma, any site (principal); D64.9 Anemia, unspecified; M81.0 Age-related osteoporosis without current pathological fracture; I10 Essential (primary) hypertension; C51.9 Malignant neoplasm of vulva, unspecified; M87.059 Idiopathic aseptic necrosis of unspecified femur; M19.90 Unspecified osteoarthritis, unspecified site; K21.9 Gastro-esophageal reflux disease without esophagitis
CPT/HCPCS: A4218

== ENCOUNTER 2018-06-16 08:37 | Outpatient (CLI) | payer MEDICARE ==
--- NOTE | 2018-06-16 09:37 | PRG ---
DATE OF SERVICE: 06/16/2018 HISTORY: Ms. 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 The patient was referred to the Wound Center by Dr. Angeles on 04/26/2018. The patient's medical history is significant for vulvar carcinoma. The patient stated that she underwent treatment for vulvar carcinoma with chemotherapy and radiation therapy. She stated that she did not receive surgery as part of her treatment. According to records accompanying the patient, Ms. Olivera was previously cared for by Dr. Justin Lee at [facility], who had referred her to Wound Care in [place] years ago. Records accompanying the patient indicated that the lymphangioma circumscriptum was a sequela of her radiation therapy. Currently, the patient is utilizing lidocaine, Calazime, and nystatin powder for treatment of her perineal lesions. She then dresses her wounds with 4x4s and ABDs. PHYSICAL EXAMINATION: VITAL SIGNS: Temperature 97.8, pulse 77, blood pressure 131/81. Perineum, lymphangioma circumscriptum encompassing an area measuring 14 x 17 cm is present. Moderate serous drainage is associated with the lesions. No erythema of the skin surrounding the lesions is present. No maceration of the skin of the periwound is noted. ASSESSMENT AND PLAN: 1. Lymphangioma circumscriptum. The patient is to continue dressing changes with lidocaine, nystatin cream or Calazime and nystatin powder. Arrangements were previously made for the home delivery of dressing supplies, specifically 4x4s and ABDs. The patient will continue dressing changes on a daily basis after cleansing and irrigation. The patient states she will consider treatment with a lymphedema pump and/or referral to rehabilitation for lymphedema therapy. 2. Vulvar carcinoma, status post chemotherapy and radiation therapy. 3. Anemia. 4. Osteoporosis. 5. Hypertension. 6. Avascular necrosis of bilateral femoral heads. 7. Osteoarthritis. 8. Gastroesophageal reflux disease. Job ID: [id number]
[2018-06-16] MEDS ORDERED: Sodium Chloride 0.9% 15 ML NEB ONE (16:15)
== END 2018-06-16 08:38 | disposition home or self-care (01) ==
LOC: WCC 08:37
PROVIDERS: ATTEND Family Medicine
DX: D18.1 Lymphangioma, any site (principal); D64.9 Anemia, unspecified; M81.0 Age-related osteoporosis without current pathological fracture; K21.9 Gastro-esophageal reflux disease without esophagitis; M19.90 Unspecified osteoarthritis, unspecified site; I10 Essential (primary) hypertension; Z85.89 Personal history of malignant neoplasm of other organs and systems; Z92.3 Personal history of irradiation; Z92.21 Personal history of antineoplastic chemotherapy
CPT/HCPCS: 97139; G0463; 99213; A4218

== ENCOUNTER 2018-06-21 08:18 | Emergency (ER) | payer MEDICARE ==
[2018-06-21] MEDS ORDERED: Morphine 4 MG/ML VIAL ONE (08:54)
[2018-06-21] MEDS ORDERED: Ondansetron PF 4 MG/2 ML Vial ONE (08:54)
--- NOTE | 2018-06-21 09:01 | CT ---
CT Brain WO Con HISTORY: Fall with head injury. COMPARISON: 03/30/2017 study FINDINGS: The ventricular and cisternal system is within normal limits. There is some decreased atten uation to the periventricular white matter suggesting some chronic white matter change. There are no signs of intracerebral hemorrhage or extra-axial fluid collections. The mastoid air cells and visu alized sinuses are clear. IMPRESSION: No acute intracranial abnormalities.
--- NOTE | 2018-06-21 09:12 | CT ---
CT Abdomen Pelvis WO Con HISTORY: Fell in shower. Complaining of back pain. Abdomen pain. COMPARISON: 10/14/2017 study FINDINGS: The lack of IV contrast degrades the ability to evaluate for solid organ injury. The lung bases show subsegmental atelectatic change. The liver and spleen show no focal findings. The pancreas shows no signs of mass on this noncontrast study. There is increased attenuation within the gallbladder possibly sludge or stones. The intra and extrahepatic bile duct is again noted to be dilated, the etiology of this is unclear but it is a stable finding. Right and left adrenal glands are normal in appearance. A small nonobstructing lower pole right renal calculus is seen measuring the 5 mm range. No left-sided calculi. There is mild dilatation left collecting system and left renal pelvis, this is less pronounced than it was on the previous exam no ureteral calculus is identified. An IVC filter is in place. Postoperative changes of abdomen are seen. A right-sided ostomy is noted with a parastomal hernia. No obstruction. No free fluid. CT of pelvis performed without contrast enhancement: Calcified uterine fibroids are noted. No free fl uid, adenopathy or mass. 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 The left femoral head as again noted be absent superior and lateral displacement of the left femoral shaft. These saxena ges of the bony pelvis or spine stable as compared to the previous exam. Soft tissue changes in the region of the fovea or soft tissues are stable finding. Review of osseous structures show a scoliotic change the spine no vertebral body compression fracture s. IMPRESSION: 1. No evidence for solid organ injury on this noncontrast exam. 2. Increased attenuation within the gallbladder which could represent sludge or stones. Intra and ext rahepatic biliary ductal dilatation is similar to the previous exam. 3. Nonobstructing right renal calculus. The dilatation to the left collecting system is less pronounc ed than on the prior exam. 4. Right-sided ostomy with peristomal hernia. No obstruction. 5. Stable changes of the bony pelvis and hip regions. No new process identified.
[2018-06-21] MEDS ORDERED: Ondansetron ODT 4 MG TAB ONE (09:36)
== END 2018-06-21 09:55 | disposition home or self-care (01) ==
LOC: ERS 08:18
DX: M54.5 Low back pain (principal); I10 Essential (primary) hypertension; M19.90 Unspecified osteoarthritis, unspecified site; D64.9 Anemia, unspecified; F41.9 Anxiety disorder, unspecified; F32.9 Major depressive disorder, single episode, unspecified; Z79.899 Other long term (current) drug therapy; W18.2XXA Fall in (into) shower or empty bathtub, initial encounter; Y92.009 Unspecified place in unspecified non-institutional (private) residence as the place of occurrence of the external cause
CPT/HCPCS: 70450; 74176; 96372; J2270; J2405; Q0162

== ENCOUNTER 2018-07-21 14:59 | Outpatient (CLI) | payer MEDICARE ==
[2018-07-21] MEDS ORDERED: Lidocaine 2% PF 100 mg/5 ml Syringe ONE (15:00)
--- NOTE | 2018-07-21 17:15 | PRG ---
DATE OF SERVICE: 07/21/2018 HISTORY: Ms. 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 The patient was referred to the Wound Center by Dr. Aleksey Charles, on 04/26/2018. The patient's medical history is significant for vulvar carcinoma. The patient stated that she underwent treatment for vulvar carcinoma with chemotherapy and radiation therapy. She stated that she did not receive surgery as part of her treatment according to records accompanying the patient, Ms. Olivera was previously cared for by Dr. Justin Lee at [facility], who had referred her to wound care in [place] years ago. Records accompanying the patient also indicated that the lymphangioma circumscriptum was a sequela of her radiation therapy. Presently, the patient is utilizing lidocaine, Calazime, and nystatin powder for treatment of her perineal lesions. She also dresses her wounds with 4x4s and ABDs. PHYSICAL EXAMINATION: VITAL SIGNS: Temperature 98.2, pulse 83, respirations are 16, and blood pressure 112/71. Perineum, lymphangioma circumscriptum encompassing an area measuring 14 x 14 cm is present. Moderate serosanguineous drainage is associated with the lesions. No erythema of the skin surrounding the lesions is present. No maceration of the skin of the periwound is noted. ASSESSMENT AND PLAN: 1. Lymphangioma circumscriptum. The patient is to continue dressing changes with lidocaine, Calazime and nystatin powder. Arrangements will be made again for the home delivery of dressing supplies, specifically, 4x4s, an ABD. The patient will continue dressing changes on a daily basis after cleansing and irrigation. The patient states that she has an appointment at rehabilitation for lymphedema therapy on 07/28/2018. The patient has already received a lymphedema pump. 2. Vulvar carcinoma, status post chemotherapy and radiation therapy. 3. Anemia. 4. Osteoporosis. 5. Hypertension. 6. Avascular necrosis of bilateral femoral heads. 7. Osteoarthritis. 8. Gastroesophageal reflux disease. Job ID: [id number]
== END 2018-07-21 15:00 | disposition home or self-care (01) ==
LOC: WCC 14:59
PROVIDERS: ATTEND Family Medicine
DX: D18.1 Lymphangioma, any site (principal); C51.9 Malignant neoplasm of vulva, unspecified; D64.9 Anemia, unspecified; M81.0 Age-related osteoporosis without current pathological fracture; I10 Essential (primary) hypertension; K21.9 Gastro-esophageal reflux disease without esophagitis; M19.90 Unspecified osteoarthritis, unspecified site; M87.851 Other osteonecrosis, right femur; M87.852 Other osteonecrosis, left femur
CPT/HCPCS: 97602; J2001

== ENCOUNTER 2018-08-22 14:13 | Outpatient (CLI) | payer MEDICARE ==
--- NOTE | 2018-08-22 16:37 | PRG ---
DATE OF SERVICE: 08/22/2018 HISTORY: Ms. 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 The patient was referred to the wound center by Dr. Aleksey Charles on 04/26/2018. The patient's medical history significant for vulvar carcinoma. The patient stated that she underwent treatment for vulvar carcinoma with chemotherapy and radiation therapy. She stated that she did not receive surgery as part of her treatment. According to records accompanying the patient, Ms. Olivera was previously cared for by Dr. Justin Lee at [facility], who had referred her to wound care in [place] years ago. Records accompanying the patient also indicated that the lymphangioma circumscriptum was a sequela of her radiation therapy. Currently, the patient is utilizing lidocaine, Calazime, and nystatin powder for treatment of her perineal lesions. She also dresses her wounds with ABDs. PHYSICAL EXAMINATION: VITAL SIGNS: Temperature 97.9, pulse 82, respirations 17, and blood pressure 113/78. SKIN: Perineum lymphangioma circumscriptum encompassing an area measuring 14 x 17 cm is present. Moderate serous drainage is associated with the lesions. No erythema of the skin surrounding the lesions is present. No maceration of the skin of the periwound is noted. ASSESSMENT AND PLAN: 1. Lymphangioma circumscriptum. The patient is to continue dressing changes with lidocaine, Calazime, and nystatin powder. Arrangements have been made previously for the home delivery of dressing supplies. The patient is to continue dressing changes on a daily basis after cleansing and irrigation. The patient has been seen at rehabilitation for evaluation for lymphedema therapy. The patient states she has a followup appointment in the near future. The patient has already received a lymphedema pump, because she has not had a significant improvement of her lymphangioma circumscriptum. The patient will be evaluated for an accessory for her lymphedema pump. 2. Bulbar carcinoma, status post chemotherapy and radiation therapy. 3. Anemia. 4. Osteoporosis. 5. Hypertension. 6. Avascular necrosis of bilateral femoral heads. 7. Osteoarthritis. 8. Gastroesophageal reflux disease. Job ID: [id number]
== END 2018-08-22 14:14 | disposition home or self-care (01) ==
LOC: WCC 14:13
PROVIDERS: ATTEND Family Medicine
DX: D18.1 Lymphangioma, any site (principal); C51.9 Malignant neoplasm of vulva, unspecified; D64.9 Anemia, unspecified; M81.0 Age-related osteoporosis without current pathological fracture; I10 Essential (primary) hypertension; K21.9 Gastro-esophageal reflux disease without esophagitis; M19.90 Unspecified osteoarthritis, unspecified site; M87.9 Osteonecrosis, unspecified

== ENCOUNTER 2018-09-19 11:52 | Outpatient (CLI) | payer MEDICARE ==
--- NOTE | 2018-09-19 14:48 | PRG ---
DATE OF SERVICE: 09/19/2018 HISTORY: Ms. 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 The patient was referred to the Wound Center by Dr. Aleksey Charles on 04/26/2018. The patient's medical history is significant for vulvar carcinoma. The patient stated that she underwent treatment for vulvar carcinoma with chemotherapy and radiation therapy. She stated that she did not receive surgery as part of her treatment. According to records accompanying the patient, Ms. Olivera was previously cared for by Dr. Justin Lee at [facility], who had referred her to Wound Care in [place] years ago. Records accompanying the patient indicated that the lymphangioma circumscriptum was a sequela of her radiation therapy. Presently, the patient is utilizing lidocaine, Calazime, and nystatin powder for treatment of her perineal lesions. The patient also dresses her wounds with ABDs. PHYSICAL EXAMINATION: VITAL SIGNS: Temperature 98.9, pulse 88, respirations 20, and blood pressure 113/62. SKIN: Perineal lymphangioma circumscriptum encompassing an area measuring 17 x 14 cm is present. Moderate serosanguineous drainage is associated with the lesions. No erythema of the skin surrounding the lesions is present. No maceration of the skin surrounding the lesions is present. ASSESSMENT AND PLAN: 1. Lymphangioma circumscriptum. The patient is to continue dressing changes with lidocaine, Calazime, and nystatin powder. Arrangements were previously made for the home delivery of dressing supplies. The patient is to continue dressing changes on a daily basis after cleansing and irrigation. The patient has already received a lymphedema pump. Because she has not had a significant improvement of her lymphangioma circumscriptum, the patient will be evaluated for an accessory for her lymphedema pump. Ms. Olivera is to return to clinic on 10/06/2018. The patient understands and is in agreement with the preceding treatment plan. 2. Vulvar carcinoma, status post chemotherapy and radiation therapy. 3. Anemia. 4. Osteoporosis. 5. Hypertension. 6. Avascular necrosis of bilateral femoral heads. 7. Osteoarthritis. 8. Gastroesophageal reflux disease. Job ID: [id number]
== END 2018-09-19 11:53 | disposition home or self-care (01) ==
LOC: WCC 11:52
PROVIDERS: ATTEND Family Medicine
DX: C76.3 Malignant neoplasm of pelvis (principal); D64.9 Anemia, unspecified; M81.0 Age-related osteoporosis without current pathological fracture; I10 Essential (primary) hypertension; M19.90 Unspecified osteoarthritis, unspecified site; K21.9 Gastro-esophageal reflux disease without esophagitis; M87.9 Osteonecrosis, unspecified; Z85.89 Personal history of malignant neoplasm of other organs and systems; Z92.21 Personal history of antineoplastic chemotherapy; Z92.3 Personal history of irradiation